=== PATIENT | male | born 1945 | race American Indian/Alaskan Native ===

== ENCOUNTER 2017-11-01 13:38 | Inpatient (IN) | payer MEDICARE, MEDICAID ==
[2017-11-01] MEDS ORDERED: Sodium Chloride 0.9% 1,000 ML IV ONE ×2 (14:11→17:31)
--- NOTE | 2017-11-01 14:13 | C.PDOC ---
History Of Present Illness Patient sent to ED from [place] for evaluation of cachexia and failure to thrive. As per [place] records, patient has h/o HTN, vascular dementia, generalized anxiety, disorder and major depressive disorder, anemia, seizure disorder. Time Seen by Provider: 11/01/17 14:06 Chief Complaint (Nursing): Weakness/Neurological Deficit History Per: EMS, Other ([place] records) History/Exam Limitations: clinical condition Past Medical History Reviewed: Historical Data, Nursing Documentation, Vital Signs Vital Signs: Last Vital Signs Temp 99.2 F 11/04/17 04:00 Pulse 102 H 11/04/17 04:00 Resp 20 11/04/17 04:00 BP 104/64 11/04/17 04:00 Pulse Ox 97 11/04/17 04:00 - Medical History PMH: Dementia, Depression, HTN, Seizures Family History: States: No Known Family Hx - Social History Hx Tobacco Use: Yes ("sometimes") Hx Alcohol Use: Yes ("sometimes") Hx Substance Use: No - Immunization History Hx Tetanus Toxoid Vaccination: No Hx Influenza Vaccination: No Hx Pneumococcal Vaccination: No Review Of Systems Review Of Systems: ROS cannot be obtained secondary to pt's inabilty to answer questions. Physical Exam - Physical Exam Appears: Chronically Ill, Other (cachectic, awake, alert, moaning ) Skin: Normal Color, Warm, Dry, Other (sacral decubitus ulcer) Oral Mucosa: Dry Cardiovascular: Rhythm Regular (tachycardic ) Respiratory: Normal Breath Sounds, No Rales, No Rhonchi, No Wheezing Gastrointestinal/Abdominal: Normal Exam, Bowel Sounds, Soft, No Tenderness Neurological/Psych: Other (awake, alert, moving all 4 extremities spontaneously ) ED Course And Treatment - Laboratory Results Result Diagrams: 11/03/17 07:18 11/03/17 07:18 ECG: Interpreted By Me, Viewed By Me (sinus tachycardia 134 bpm, normal axis, no acute ST/T wave changes) ECG Interpretation: Abnormal O2 Sat by Pulse Oximetry: 96 (ra) Pulse Ox Interpretation: Normal - Other Rad CXR X-Ray: Viewed By Me, Read By Radiologist Interpretation: Accession No. : [id number]. Patient Name / ID : JYOTI Jones / [id number]. Exam Date : 11/01/2017 14:25:17 ( Approved ). Study Comment : Sex / Age : M / 72Y. Creator : Tonio Elizondo MD. Dictator : Tonio Elizondo MD. Rubber Stamp Die Inspector : Song Writer : Tonio Elizondo MD. Approver2 : Report Date : 11/01/2017 14:40:31. My Comment : . PROCEDURE: CHEST RADIOGRAPH, 1 VIEW. HISTORY: eval. COMPARISON: None available. FINDINGS: LUNGS: Left apical pleural thickening/ fibrotic change. Patchy right basilar infiltrate. Questionable 1.8 cm nodule in the right lower lung. PLEURA: No pneumothorax or pleural fluid seen. CARDIOVASCULAR: Atherosclerotic aortic calcifications. Cardiomediastinal silhouette is normal. OSSEOUS STRUCTURES: Degenerative changes. VISUALIZED UPPER ABDOMEN: Normal. OTHER FINDINGS: None. IMPRESSION: Patchy right basal infiltrate. Left apical pleural thickening/ fibrotic change. Questionable 1.8 cm nodule in the right lower lung. CT scan can be obtained for further evaluation. Progress Note: Blood work, CXR, EKG, UA ordered and reviewed. Patient given IV NS bolus. IV antibiotics given for pneumonia and UTI. 5:00PM- Multiple chemistry specimens hemolyzed - new specimen drawn by me, arterial draw from left radial artery. CXR - shows right sided infiltrate, IV Vancomycin, Cefepime and Avelox ordered. 5:45pm- HR 128bpm, BP 108/64, RR30, POx 96% on RA - Physician Consult Information Physician Contacted: Shabbir Yancey Outcome Of Conversation: Discussed patient with PMD, agrees with admission for dehydration, failure to thrive, pneumonia, UTI, leukocytosis, tachycardia. Critical Care Time - Critical Care Note Total Time (in mins): 40 Documented critical care: time excludes all time spent performing seperately billable procedures. Disposition - Disposition Disposition: HOSPITALIZED Disposition Time: 17:53 Condition: FAIR - Clinical Impression Clinical Impression: UTI (urinary tract infection), Pneumonia, Dehydration, Failure to thrive, Leukocytosis, Tachycardia
--- NOTE | 2017-11-01 14:43 | RAD ---
PROCEDURE: CHEST RADIOGRAPH, 1 VIEW HISTORY: eval COMPARISON: None available. FINDINGS: LUNGS: Left apical pleural thickening/ fibrotic change. Patchy right basilar infiltrate. Questionable 1.8 cm nodule in the right lower lung. PLEURA: No pneumothorax or pleural fluid seen. CARDIOVASCULAR: Atherosclerotic aortic calcifications. Cardiomediastinal silhouette is normal. OSSEOUS STRUCTURES: Degenerative changes. VISUALIZED UPPER ABDOMEN: Normal. OTHER FINDINGS: None. IMPRESSION: Patchy right basal infiltrate. Left apical pleural thickening/ fibrotic change. Questionable 1.8 cm nodule in the right lower lung. CT scan can be obtained for further evaluation.
[2017-11-01 15:30] LABS: VENOUS BLOOD GAS BASE EXCESS 8.8 mmol/L (0.0-2.0); VENOUS BLOOD GAS PCO2 35 mmHg (40-60); VENOUS BLOOD GAS PO2 49 mm/Hg (30-55); VENOUS BLOOD PH 7.56 (7.32-7.43)
[2017-11-01 15:52] LABS: BASO % 0.3 % (0.0-2.0); HEMOGLOBIN 10.9 g/dL (12.0-18.0); LYMPH # 1.5 K/uL (1.0-4.3); LYMPH % 8.3 % (20.0-40.0); MEAN CORPUSCULAR HEMOGLOBIN 26.8 pg (27.0-31.0); MEAN CORPUSCULAR HGB CONC 32.2 g/dL (33.0-37.0); MEAN PLATELET VOLUME 7.9 fL (7.2-11.7); MONO # 1.2 K/uL (0.0-0.8); MONO % 6.5 % (0.0-10.0); NEUT # 15.4 K/uL (1.8-7.0); NEUT % 84.9 % (50.0-75.0); NRBC % 0.1 % (0.0-2.0); RBC 4.08 Mil/uL (4.40-5.90); RED CELL DISTRIBUTION WIDTH 14.2 % (11.5-14.5)
[2017-11-01 15:57] LABS: MEAN CELL VOLUME 83.2 fL (80.0-94.0); PLATELET COUNT 444 K/uL (130-400); WHITE BLOOD COUNT 18.2 K/uL (4.8-10.8)
[2017-11-01 16:01] LABS: INR 1.5; PROTHROMBIN TIME 17.1 SECONDS (9.7-12.2)
[2017-11-01 16:19] LABS: LYMPHOCYTE 10 % (20-40); MONOCYTE 6 % (0-10); NEUTROPHIL 84 % (50-75); PLATELET ESTIMATE NORMAL (NORMAL); TOTAL CELLS COUNTED 100
[2017-11-01 16:20] LABS: HYPOCHROMIC SLIGHT; LARGE PLATELETS PRESENT; TARGET CELLS SLIGHT
[2017-11-01 16:52] LABS: ALB/GLOB RATIO 0.6 (1.0-2.1); ALBUMIN 3.5 g/dL (3.5-5.0); ALT/SGPT < 6 U/L (21-72); AST/SGOT 85 U/L (17-59); BLOOD UREA NITROGEN 27 mg/dL (9-20); CALCIUM 8.9 mg/dl (8.6-10.4); GFR AFRICAN-AMERICAN > 60; GFR NON-AFRICAN AMERICAN > 60; LIPASE 38 U/L (23-300)
[2017-11-01 16:54] LABS: URINE BILIRUBIN NEGATIVE (NEGATIVE); URINE BLOOD 3+ (NEGATIVE); URINE CLARITY Hazy (Clear); URINE COLOR Yellow (YELLOW); URINE GLUCOSE (UA) NORMAL (Normal); URINE LEUKOCYTE ESTERASE 2+ Leu/uL (Negative); URINE PROTEIN NEGATIVE (NEGATIVE)
[2017-11-01 16:54] LABS: CK-MB 0.67 ng/mL (0.0-3.38)
[2017-11-01 17:39] LABS: ALB/GLOB RATIO 0.6 (1.0-2.1); ALBUMIN 2.9 g/dL (3.5-5.0); ALT/SGPT 14 U/L (21-72); AST/SGOT 27 U/L (17-59); BLOOD UREA NITROGEN 24 mg/dL (9-20); CALCIUM 8.4 mg/dl (8.6-10.4); GFR AFRICAN-AMERICAN > 60; GFR NON-AFRICAN AMERICAN > 60
[2017-11-01] MEDS ORDERED: Cefepime 1 GM in Sodium Chloride 0.9% 50 ML IVPB STA (17:46)
[2017-11-01] MEDS ORDERED: Vancomycin 1 GM 1 GM/250 ML BAG IV STA (17:46)
[2017-11-01] MEDS ORDERED: Moxifloxacin IV 400mg/250ml NS 400 MG/250 ML BAG IV STA (17:46)
[2017-11-01] MEDS ORDERED: Piperacillin/Tazobact 3.375 gm 100 ML IV STA (17:52)
[2017-11-01] MEDS ORDERED: Piperacillin/Tazobact 3.375 gm 100 ML IVPB ONE (19:09)
[2017-11-01] MEDS: Vancomycin 1 gm/NS 200 ml 1 GM/200 ML BAG IVPB SCH (20:56)
[2017-11-01] MEDS: Dextrose 5%/0.9% NS 1,000 ML IV SCH (21:00)
[2017-11-01] MEDS ORDERED: Phytonadione 10 mg/ml Inj (Adult) SC ONE (22:00)
--- NOTE | 2017-11-01 23:01 | CP.PCM.HP ---
History of Present Illness - History of Present Illness History of Present Illness: CC: weakness HPI: This is an elderly 72 year old male, resident of [facility] with MH of HTN, Alzeimers with psychosis, he is not eating for last few days, not eating well, multiple decubiti in gluteal area, pt has been not eating well since few weeks, pt is complaint to medications. Present on Admission - Present on Admission Any Indicators Present on Admission: Yes Decubitus Ulcer Present: Yes (pt has 2 stage 1 decubiti on left hip and 1 stage 3 decubiti inright hip wi) Decubitus Ulcer Location: sacral Decubitus Ulcer Stage: III Review of Systems - Review of Systems Systems not reviewed;Unavailable: Acuity of Condition - Constitutional Constitutional: Lethargy, Weakness - EENT Eyes: absent: As Per HPI, Blind Spots, Blurred Vision, Change in Vision, Decreased Night Vision, Diplopia, Discharge, Dry Eye, Exophthalmos, Floaters, Irritation, Itchy Eyes, Loss of Peripheral Vision, Pain, Photophobia, Requires Corrective Lenses, Sees Flashes, Spots in Vision, Tunnel Vision, Other Visual Disturbances, Loss of Vision, Other Nose/Mouth/Throat: absent: As Per HPI, Epistaxis, Nasal Congestion, Nasal Discharge, Nasal Obstruction, Nasal Trauma, Nose Pain, Post Nasal Drip, Sinus Pain, Sinus Pressure, Bleeding Gums, Change in Voice, Dental Pain, Dry Mouth, Dysphagia, Halitosis, Hoarsness, Lip Swelling, Mouth Lesions, Mouth Pain, Odynophagia, Sore Throat, Throat Swelling, Tongue Swelling, Facial Pain, Neck Pain, Neck Mass, Other - Cardiovascular Cardiovascular: absent: As Per HPI, Acrocyanosis, Chest Pain, Chest Pain at Rest , Chest Pain with Activity, Claudication, Diaphoresis, Dyspnea, Dyspnea on Exertion, Edema, Irregular Heart Rhythm, Pain Radiating to Arm/Neck/Jaw, Leg Edema, Leg Ulcers, Lightheadedness, Orthopnea, Palpitations, Paroxysmal Nocturnal Dyspnea, Pedal Edema, Radiating Pain, Rapid Heart Rate, Slow Heart Rate, Syncope, Other - Respiratory Respiratory: Chest Congestion - Gastrointestinal Gastrointestinal: Nausea - Genitourinary Genitourinary: absent: As Per HPI, Change in Urinary Stream, Difficulty Urinating, Dysuria, Flank Pain, Hematuria, Pyuria, Nocturia, Urinary Incontinence, Urinary Frequency, Urinary Hesitance, Urinary Urgency, Voiding Freq/Small Amts, Freq UTI, Hx Renal/Bladder Calculi, Hx /Renal Surgery, Bladder Distension, Other - Musculoskeletal Musculoskeletal: Abnormal Gait, Muscle Weakness, Numbness, Tingling - Integumentary Integumentary: Dry Skin, Skin Ulcer - Neurological Neurological: Memory Loss, Weakness - Psychiatric Psychiatric: Abnormal Sleep Pattern, Anhedonia - Endocrine Endocrine: absent: As Per HPI, Change in Body Appearance, Change in Libido, Cold Intolorance, Deepening of Voice, Excessive Sweating, Fatigue, Flushing, Heat Intolorance, Increase in Ring/Shoe/Hat Size, Palpitations, Polydipsia, Polyphagia, Polyuria, Other Past Patient History - Past Medical History & Family History Past Medical History?: Yes - Past Social History Smoking Status: Former Smoker - CARDIAC Hx Hypertension: Yes - PULMONARY Hx Respiratory Disorders: No - NEUROLOGICAL Hx Dementia: Yes Hx Seizures: Yes - HEENT Hx HEENT Problems: No - RENAL Hx Chronic Kidney Disease: No - ENDOCRINE/METABOLIC Hx Endocrine Disorders: No - HEMATOLOGICAL/ONCOLOGICAL Hx Blood Disorders: No - INTEGUMENTARY Hx Dermatological Problems: No - MUSCULOSKELETAL/RHEUMATOLOGICAL Hx Falls: Yes Hx Unsteady Gait: Yes - GASTROINTESTINAL Hx Gastrointestinal Disorders: No - GENITOURINARY/GYNECOLOGICAL Hx Genitourinary Disorders: No - PSYCHIATRIC Hx Depression: Yes Hx Substance Use: No - SURGICAL HISTORY Hx Surgeries: Yes Hx Orthopedic Surgery: Yes Other/Comment: Hx of hip sx with pin insertion in 1989, family member knows nothing more - ANESTHESIA Hx Anesthesia: Yes Hx Anesthesia Reactions: No Meds Allergies/Adverse Reactions: Allergies Allergy/AdvReac Type Severity Reaction Status Date / Time No Known Allergies Allergy Verified 09/13/13 11:11 Physical Exam - Constitutional Appears: No Acute Distress, Cachectic - Eye Exam Eye Exam: EOMI, Normal appearance, PERRL Pupil Exam: NORMAL ACCOMODATION, PERRL - ENT Exam ENT Exam: Mucous Membranes Dry - Neck Exam Neck exam: Positive for: Normal Inspection - Respiratory Exam Respiratory Exam: Rales - Cardiovascular Exam Cardiovascular Exam: Tachycardia, +S1, +S2 - GI/Abdominal Exam GI & Abdominal Exam: Normal Bowel Sounds, Soft. absent: Tenderness - Neurological Exam Neurological exam: Abnormal Gait - Psychiatric Exam Psychiatric exam: Anxious - Skin Skin Exam: Dry, Erythema, Intact, Normal Color, Rash, Warm Additional comments: infected sacral decubitis, right hip and sacral area Results - Vital Signs Recent Vital Signs: Last Vital Signs Temp 98.4 F 11/01/17 17:57 Pulse 127 H 11/01/17 17:57 Resp 16 11/01/17 17:57 BP 108/64 11/01/17 17:57 Pulse Ox 98 11/01/17 17:57 - Labs Result Diagrams: 11/01/17 15:42 11/01/17 17:17 Labs: Laboratory Results - last 24 hr 11/01/17 11/01/17 11/01/17 15:18 15:42 15:42 WBC 18.2 H D RBC 4.08 L Hgb 10.9 L Hct 34.0 L MCV 83.2 D MCH 26.8 L MCHC 32.2 L RDW 14.2 Plt Count 444 H D MPV 7.9 Neut % (Auto) 84.9 H Lymph % (Auto) 8.3 L [place] % (Auto) 6.5 Eos % (Auto) 0.0 Baso % (Auto) 0.3 Neut # (Auto) 15.4 H Lymph # (Auto) 1.5 [place] # (Auto) 1.2 H Eos # (Auto) 0.0 Baso # (Auto) 0.0 Neutrophils % (Manual) 84 H Lymphocytes % (Manual) 10 L Monocytes % (Manual) 6 Platelet Estimate Normal Large Platelets Present Hypochromasia (manual) Slight Target Cells Slight PT 17.1 H INR 1.5 APTT 26 pO2 49 VBG pH 7.56 H VBG pCO2 35 L VBG HCO3 31.6 VBG Total CO2 32.4 H VBG O2 Sat (Calc) 92.6 H VBG Base Excess 8.8 H VBG Potassium 7.0 H* Sodium 148.0 Chloride 117.0 H Glucose 128 H Lactate 1.8 Crit Value Called To Zee javed rn Crit Value Called By Iris Crit Value Read Back Y Blood Gas Notified Time 1530 Potassium Carbon Dioxide Anion Gap BUN Creatinine Est GFR ( Amer) Est GFR (Non-Af Amer) Random Glucose Calcium Total Bilirubin AST ALT Alkaline Phosphatase CK-MB (Mass) Troponin I Total Protein Albumin Globulin Albumin/Globulin Ratio Lipase Venous Blood Potassium 7.0 H* Urine Color Urine Clarity Urine pH Ur Specific [place] Urine Protein Urine Glucose (UA) Urine Ketones Urine Blood Urine Nitrate Urine Bilirubin Urine Urobilinogen Ur Leukocyte Esterase Urine WBC (Auto) Urine RBC (Auto) 11/01/17 11/01/17 11/01/17 15:42 16:22 16:55 WBC RBC Hgb Hct MCV MCH MCHC RDW Plt Count MPV Neut % (Auto) Lymph % (Auto) [place] % (Auto) Eos % (Auto) Baso % (Auto) Neut # (Auto) Lymph # (Auto) [place] # (Auto) Eos # (Auto) Baso # (Auto) Neutrophils % (Manual) Lymphocytes % (Manual) Monocytes % (Manual) Platelet Estimate Large Platelets Hypochromasia (manual) Target Cells PT INR APTT pO2 VBG pH VBG pCO2 VBG HCO3 VBG Total CO2 VBG O2 Sat (Calc) VBG Base Excess VBG Potassium Sodium 154 H Chloride 112 H Glucose Lactate Crit Value Called To Crit Value Called By Crit Value Read Back Blood Gas Notified Time Potassium 7.0 H* Carbon Dioxide 28 Anion Gap 20 BUN 27 H Creatinine 1.0 Est GFR ( Amer) > 60 Est GFR (Non-Af Amer) > 60 Random Glucose 122 H Calcium 8.9 Total Bilirubin 1.9 H AST 85 H ALT < 6 L D Alkaline Phosphatase 141 H CK-MB (Mass) 0.67 Troponin I 0.0130 Total Protein 9.5 H Albumin 3.5 Globulin 6.0 H Albumin/Globulin Ratio 0.6 L Lipase 38 Venous Blood Potassium Urine Color Yellow Urine Clarity Hazy Urine pH 5.0 Ur Specific [place] 1.015 Urine Protein Negative Urine Glucose (UA) Normal Urine Ketones Negative Urine Blood 3+ H Urine Nitrate Negative Urine Bilirubin Negative Urine Urobilinogen 4.0 Ur Leukocyte Esterase 2+ H Urine WBC (Auto) 20 H Urine RBC (Auto) 145 H 11/01/17 17:17 WBC RBC Hgb Hct MCV MCH MCHC RDW Plt Count MPV Neut % (Auto) Lymph % (Auto) [place] % (Auto) Eos % (Auto) Baso % (Auto) Neut # (Auto) Lymph # (Auto) [place] # (Auto) Eos # (Auto) Baso # (Auto) Neutrophils % (Manual) Lymphocytes % (Manual) Monocytes % (Manual) Platelet Estimate Large Platelets Hypochromasia (manual) Target Cells PT INR APTT pO2 VBG pH VBG pCO2 VBG HCO3 VBG Total CO2 VBG O2 Sat (Calc) VBG Base Excess VBG Potassium Sodium 154 H Chloride 115 H Glucose Lactate Crit Value Called To Crit Value Called By Crit Value Read Back Blood Gas Notified Time Potassium 4.4 Carbon Dioxide 28 Anion Gap 16 BUN 24 H Creatinine 0.9 Est GFR ( Amer) > 60 Est GFR (Non-Af Amer) > 60 Random Glucose 126 H Calcium 8.4 L Total Bilirubin 0.9 AST 27 ALT 14 L D Alkaline Phosphatase 86 CK-MB (Mass) Troponin I Total Protein 7.5 Albumin 2.9 L Globulin 4.6 H Albumin/Globulin Ratio 0.6 L Lipase Venous Blood Potassium Urine Color Urine Clarity Urine pH Ur Specific [place] Urine Protein Urine Glucose (UA) Urine Ketones Urine Blood Urine Nitrate Urine Bilirubin Urine Urobilinogen Ur Leukocyte Esterase Urine WBC (Auto) Urine RBC (Auto) Assessment & Plan (1) Sacral decubitus ulcer, stage III Assessment and Plan: admit, IV fluids, pancultures Status: Acute (2) HTN (hypertension) Status: Acute (3) Alzheimer disease Status: Acute (4) Weakness Status: Acute
[2017-11-02] MEDS: Dextrose 5%/0.9% NS 1,000 ML IV SCH ×2 (02:42→13:09)
[2017-11-02] MEDS: Piperacillin/Tazobact 3.375 GM in Sodium Chloride 100 ML IVPB SCH ×3 (02:43→18:34)
--- NOTE | 2017-11-02 07:41 | CP.PCM.PN ---
Subjective - Date & Time of Evaluation Date of Evaluation: 11/02/17 Time of Evaluation: 19:00 - Subjective Subjective: Pt seen and examined at bedside, pt is more alert, afebrile, less tacycardic, less tacypneac, cultures are pending Objective - Vital Signs/Intake and Output Vital Signs (last 24 hours): Temp Pulse Resp BP Pulse Ox 97.6 F 110 H 20 131/69 96 11/01/17 23:50 11/02/17 04:00 11/01/17 23:50 11/01/17 23:50 11/01/17 23:50 Intake and Output: 11/02/17 11/02/17 06:59 18:59 Intake Total 300 Output Total 950 Balance -650 - Medications Medications: Current Medications Ascorbic Acid (Vitamin C 500 Mg Tab) 500 mg PO DAILY [facility] Divalproex Sodium (Depakote Sprinkles) 125 mg PO BID [facility] Enoxaparin Sodium (Lovenox) 30 mg SC DAILY [facility] Folic Acid (Folic Acid) 1 mg PO DAILY [facility] Dextrose/Sodium Chloride (Dextrose 5%/0.9% Ns 1000 Ml) 1,000 mls @ 150 mls/hr IV .[id number] [facility] Last Admin: 11/02/17 02:42 Dose: Not Given Vancomycin/Sodium Chloride (Vancomycin 1 Gm/Ns 200 Ml) 1 gm in 200 mls @ 133.333 mls/hr IVPB Q24H [facility] PRN Reason: Protocol Stop: 11/06/17 20:31 Last Admin: 11/01/17 20:56 Dose: 133.333 mls/hr Piperacillin Sod/Tazobactam (Sod 3.375 gm/ Sodium Chloride) 100 mls @ 200 mls/ hr IVPB Q8H [facility] PRN Reason: Protocol Last Admin: 11/02/17 02:43 Dose: 200 mls/hr Levetiracetam (Keppra) 500 mg PO BID [facility] Memantine (Namenda) 10 mg PO BID [facility] Risperidone (Risperdal Tab) 0.5 mg PO TID [facility] Vitamin B Complex/Folic Acid (Berroca) 1 tab PO DAILY [facility] Vitamin E (Vitamin E 400 Units Cap) 400 intlu PO DAILY [facility] Zinc Sulfate (Zinc Sulfate 220 Mg Cap) 220 mg PO DAILY [facility] - Labs Labs: 11/01/17 15:42 11/01/17 17:17 PT 17.1 SECONDS (9.7-12.2) H 11/01/17 15:42 INR 1.5 11/01/17 15:42 APTT 26 SECONDS (21-34) 11/01/17 15:42 - Constitutional Appears: No Acute Distress - Head Exam Head Exam: ATRAUMATIC, NORMAL INSPECTION, NORMOCEPHALIC - Eye Exam Eye Exam: EOMI, Normal appearance, PERRL Pupil Exam: NORMAL ACCOMODATION, PERRL - Respiratory Exam Respiratory Exam: Clear to Ausculation Bilateral, NORMAL BREATHING PATTERN - Cardiovascular Exam Cardiovascular Exam: Tachycardia, +S1, +S2. absent: Murmur - GI/Abdominal Exam GI & Abdominal Exam: Soft, Normal Bowel Sounds. absent: Tenderness Assessment and Plan (1) Sacral decubitus ulcer, stage III Assessment & Plan: A/P 72 yr old male admitted from [place] for cachexia and failure to thrive./ hypernatremia NA - 154 will continue with IVF at 2150 ml /hrx 1 days and repeat labs in am, and start puree diet and swallow eval Patient will be stable for peg tube by MONDAY D/w Dr. Caputo plan for peg tube Monday if patient stable will continue with current antibiotics until cultures are back Wound care Nurse Delvin consulted for wound care recommendations Status: Acute (2) HTN (hypertension) Status: Acute (3) Alzheimer disease Status: Acute (4) Weakness Status: Acute
[2017-11-02] MEDS ORDERED: Phytonadione 10 mg/ml Inj (Adult) SC STA (10:57)
--- NOTE | 2017-11-02 11:55 | CARD ---
APPROVED REPORT EKG Measurement Heart [id number] ID [id number] <Conclusion> Sinus tachycardia Otherwise normal ECG
--- NOTE | 2017-11-02 12:01 | CP.PCM.CON ---
History of Present Illness - History of Present Illness History of Present Illness: Palliative consult requested by Doctor Yancey for goals of care discussion Patient is a 72yo male, admitted from [place] with cachexia and failure to thrive. per documentation patient has been compliant with meds, but no with food; has been refusing food for few weeks now. PEG insertion planned for today. On admission WBC 18.2, VBG K was 7.0, dropped down to 4.4 today. Na 154 elevated most likely due to dehydration. UA suggesting a lot of bacteria in urine. PMH: HTN, vascular dementia, anxiety, psychosis, major depressive disorders, seizures Soc. hx: [place] resident, single Fam. Hx: none documented, patient unable to provide information Review of Systems - Review of Systems All systems: reviewed and no additional remarkable complaints except Review of Systems: ROS obtained from nursing due to patient's inability to answer questions secondary to medical condition. Per nursing one of patient's bed sores has a foul smell. Past Patient History - Past Medical History & Family History Past Medical History?: Yes - Past Social History Smoking Status: Former Smoker - CARDIAC Hx Hypertension: Yes - PULMONARY Hx Respiratory Disorders: No - NEUROLOGICAL Hx Dementia: Yes Hx Seizures: Yes - HEENT Hx HEENT Problems: No - RENAL Hx Chronic Kidney Disease: No - ENDOCRINE/METABOLIC Hx Endocrine Disorders: No - HEMATOLOGICAL/ONCOLOGICAL Hx Blood Disorders: No - INTEGUMENTARY Hx Dermatological Problems: No - MUSCULOSKELETAL/RHEUMATOLOGICAL Hx Falls: Yes Hx Unsteady Gait: Yes - GASTROINTESTINAL Hx Gastrointestinal Disorders: No - GENITOURINARY/GYNECOLOGICAL Hx Genitourinary Disorders: No - PSYCHIATRIC Hx Depression: Yes Hx Substance Use: No - SURGICAL HISTORY Hx Surgeries: Yes Hx Orthopedic Surgery: Yes Other/Comment: Hx of hip sx with pin insertion in 1989, family member knows nothing more - ANESTHESIA Hx Anesthesia: Yes Hx Anesthesia Reactions: No Meds Allergies/Adverse Reactions: Allergies Allergy/AdvReac Type Severity Reaction Status Date / Time No Known Allergies Allergy Verified 09/13/13 11:11 - Medications Medications: Current Medications Ascorbic Acid (Vitamin C 500 Mg Tab) 500 mg PO DAILY [facility] Divalproex Sodium (Depakote Sprinkles) 125 mg PO BID [facility] Enoxaparin Sodium (Lovenox) 30 mg SC DAILY [facility] Folic Acid (Folic Acid) 1 mg PO DAILY [facility] Dextrose/Sodium Chloride (Dextrose 5%/0.9% Ns 1000 Ml) 1,000 mls @ 150 mls/hr IV .Q6H40M [facility] Last Admin: 11/02/17 02:42 Dose: Not Given Vancomycin/Sodium Chloride (Vancomycin 1 Gm/Ns 200 Ml) 1 gm in 200 mls @ 133.333 mls/hr IVPB Q24H [facility] PRN Reason: Protocol Stop: 11/06/17 20:31 Last Admin: 11/01/17 20:56 Dose: 133.333 mls/hr Piperacillin Sod/Tazobactam (Sod 3.375 gm/ Sodium Chloride) 100 mls @ 200 mls/ hr IVPB Q8H [facility] PRN Reason: Protocol Last Admin: 11/02/17 02:43 Dose: 200 mls/hr Metronidazole (Flagyl) 500 mg in 100 mls @ 100 mls/hr IVPB Q8 [facility] PRN Reason: Protocol Levetiracetam (Keppra) 500 mg PO BID [facility] Memantine (Namenda) 10 mg PO BID [facility] Pantoprazole Sodium (Protonix Inj) 40 mg IVP DAILY [facility] Risperidone (Risperdal Tab) 0.5 mg PO TID [facility] Vitamin B Complex/Folic Acid (Berroca) 1 tab PO DAILY [facility] Vitamin E (Vitamin E 400 Units Cap) 400 intlu PO DAILY [facility] Zinc Sulfate (Zinc Sulfate 220 Mg Cap) 220 mg PO DAILY [facility] Physical Exam - Constitutional Appears: Chronically Ill - Head Exam Head Exam: ATRAUMATIC, NORMAL INSPECTION, NORMOCEPHALIC - Eye Exam Eye Exam: EOMI, Normal appearance, PERRL Pupil Exam: NORMAL ACCOMODATION, PERRL - ENT Exam ENT Exam: Mucous Membranes Dry - Neck Exam Neck exam: Positive for: Normal Inspection - Respiratory Exam Respiratory Exam: Decreased Breath Sounds, NORMAL BREATHING PATTERN - Cardiovascular Exam Cardiovascular Exam: Tachycardia - GI/Abdominal Exam GI & Abdominal Exam: Normal Bowel Sounds - Rectal Exam Rectal Exam: Deferred - Exam Exam: NORMAL INSPECTION - Extremities Exam Extremities exam: Positive for: normal inspection - Back Exam Additional comments: multiple sacral and hip pressure sores - Neurological Exam Neurological exam: Alert, Altered - Psychiatric Exam Psychiatric exam: Agitated - Skin Skin Exam: Pallor Results - Vital Signs Recent Vital Signs: Last Vital Signs Temp 97.4 F L 11/02/17 07:40 Pulse 119 H 11/02/17 07:40 Resp 18 11/02/17 07:40 BP 112/60 11/02/17 07:40 Pulse Ox 92 L 11/02/17 07:40 - Labs Result Diagrams: 11/01/17 15:42 11/01/17 17:17 Labs: Laboratory Results - last 24 hr 11/01/17 11/01/17 11/01/17 15:18 15:42 15:42 WBC 18.2 H D RBC 4.08 L Hgb 10.9 L Hct 34.0 L MCV 83.2 D MCH 26.8 L MCHC 32.2 L RDW 14.2 Plt Count 444 H D MPV 7.9 Neut % (Auto) 84.9 H Lymph % (Auto) 8.3 L [place] % (Auto) 6.5 Eos % (Auto) 0.0 Baso % (Auto) 0.3 Neut # (Auto) 15.4 H Lymph # (Auto) 1.5 [place] # (Auto) 1.2 H Eos # (Auto) 0.0 Baso # (Auto) 0.0 Neutrophils % (Manual) 84 H Lymphocytes % (Manual) 10 L Monocytes % (Manual) 6 Platelet Estimate Normal Large Platelets Present Hypochromasia (manual) Slight Target Cells Slight PT 17.1 H INR 1.5 APTT 26 pO2 49 VBG pH 7.56 H VBG pCO2 35 L VBG HCO3 31.6 VBG Total CO2 32.4 H VBG O2 Sat (Calc) 92.6 H VBG Base Excess 8.8 H VBG Potassium 7.0 H* Sodium 148.0 Chloride 117.0 H Glucose 128 H Lactate 1.8 Crit Value Called To Zee javed rn Crit Value Called By Iris Crit Value Read Back Y Blood Gas Notified Time 1530 Potassium Carbon Dioxide Anion Gap BUN Creatinine Est GFR ( Amer) Est GFR (Non-Af Amer) Random Glucose Calcium Total Bilirubin AST ALT Alkaline Phosphatase CK-MB (Mass) Troponin I Total Protein Albumin Globulin Albumin/Globulin Ratio Lipase Venous Blood Potassium 7.0 H* Urine Color Urine Clarity Urine pH Ur Specific [place] Urine Protein Urine Glucose (UA) Urine Ketones Urine Blood Urine Nitrate Urine Bilirubin Urine Urobilinogen Ur Leukocyte Esterase Urine WBC (Auto) Urine RBC (Auto) 11/01/17 11/01/17 11/01/17 15:42 16:22 16:55 WBC RBC Hgb Hct MCV MCH MCHC RDW Plt Count MPV Neut % (Auto) Lymph % (Auto) [place] % (Auto) Eos % (Auto) Baso % (Auto) Neut # (Auto) Lymph # (Auto) [place] # (Auto) Eos # (Auto) Baso # (Auto) Neutrophils % (Manual) Lymphocytes % (Manual) Monocytes % (Manual) Platelet Estimate Large Platelets Hypochromasia (manual) Target Cells PT INR APTT pO2 VBG pH VBG pCO2 VBG HCO3 VBG Total CO2 VBG O2 Sat (Calc) VBG Base Excess VBG Potassium Sodium 154 H Chloride 112 H Glucose Lactate Crit Value Called To Crit Value Called By Crit Value Read Back Blood Gas Notified Time Potassium 7.0 H* Carbon Dioxide 28 Anion Gap 20 BUN 27 H Creatinine 1.0 Est GFR ( Amer) > 60 Est GFR (Non-Af Amer) > 60 Random Glucose 122 H Calcium 8.9 Total Bilirubin 1.9 H AST 85 H ALT < 6 L D Alkaline Phosphatase 141 H CK-MB (Mass) 0.67 Troponin I 0.0130 Total Protein 9.5 H Albumin 3.5 Globulin 6.0 H Albumin/Globulin Ratio 0.6 L Lipase 38 Venous Blood Potassium Urine Color Yellow Urine Clarity Hazy Urine pH 5.0 Ur Specific [place] 1.015 Urine Protein Negative Urine Glucose (UA) Normal Urine Ketones Negative Urine Blood 3+ H Urine Nitrate Negative Urine Bilirubin Negative Urine Urobilinogen 4.0 Ur Leukocyte Esterase 2+ H Urine WBC (Auto) 20 H Urine RBC (Auto) 145 H 11/01/17 17:17 WBC RBC Hgb Hct MCV MCH MCHC RDW Plt Count MPV Neut % (Auto) Lymph % (Auto) [place] % (Auto) Eos % (Auto) Baso % (Auto) Neut # (Auto) Lymph # (Auto) [place] # (Auto) Eos # (Auto) Baso # (Auto) Neutrophils % (Manual) Lymphocytes % (Manual) Monocytes % (Manual) Platelet Estimate Large Platelets Hypochromasia (manual) Target Cells PT INR APTT pO2 VBG pH VBG pCO2 VBG HCO3 VBG Total CO2 VBG O2 Sat (Calc) VBG Base Excess VBG Potassium Sodium 154 H Chloride 115 H Glucose Lactate Crit Value Called To Crit Value Called By Crit Value Read Back Blood Gas Notified Time Potassium 4.4 Carbon Dioxide 28 Anion Gap 16 BUN 24 H Creatinine 0.9 Est GFR ( Amer) > 60 Est GFR (Non-Af Amer) > 60 Random Glucose 126 H Calcium 8.4 L Total Bilirubin 0.9 AST 27 ALT 14 L D Alkaline Phosphatase 86 CK-MB (Mass) Troponin I Total Protein 7.5 Albumin 2.9 L Globulin 4.6 H Albumin/Globulin Ratio 0.6 L Lipase Venous Blood Potassium Urine Color Urine Clarity Urine pH Ur Specific [place] Urine Protein Urine Glucose (UA) Urine Ketones Urine Blood Urine Nitrate Urine Bilirubin Urine Urobilinogen Ur Leukocyte Esterase Urine WBC (Auto) Urine RBC (Auto) Assessment & Plan - Assessment and Plan (Free Text) Assessment: Palliative consult Full Code, POLST on chart I reviewed medica; records, all diagnostic studies, examined paient in the bed. Patient is alert, altered, agitated, yelling " water, water". Patient kept NPO for PEG insertion. Per nursing no POA was reached for PEG consent. Physical exam reveals cachectic male, with multiple sacral and hip pressure sores. Limited mobility in bed, nonambulatory. Diminished breath sounds, no cough. HR 119, ST. Abdomen flat, active bowel sounds, incontinent. Foul smelling left hip pressure sore, drainage serous. Murray cath at bed side drained 650 cc of tea color urine. IVF of D5NS at 150 cc/ hr. BP 112/60, HR 19. Afebrile Hb 7.9, Na 154 elevated most likely due to dehydration. WBC 18.2. Vanco IV on board. UA showed many bacteria in the urine. I called patient's POA Nora Mtz at [phone] . Call was not answered and mail box fas full, did not accept new voice mail. Impression * Chronically ill male, unable to advocate for himself due to medical condition * cachecia * Anxiety * Limited mobility * Dehydration * Malnutrition Suggestion * Administrative order for PEG as it is priority for patient's well being at this time since POA is not reachable * Psych consult for anxiety evaluation and treatment * Air mattress and turning and positioning * Artificial Hydration and Nutrition
[2017-11-02] MEDS: Enoxaparin 30 mg Syringe SC SCH (12:55)
[2017-11-02] MEDS: Divalproex 125 mg Sprinkle Capsule PO SCH ×2 (13:08→17:58)
[2017-11-02] MEDS: metroNIDAZOLE IV 500 mg/100 ml 500 MG/100 ML BAG IVPB SCH ×2 (14:09→22:37)
--- NOTE | 2017-11-02 15:52 | CP.PCM.PN ---
Subjective - Date & Time of Evaluation Date of Evaluation: 11/02/17 Time of Evaluation: 11:00 - Subjective Subjective: Patient seen today , awake, alert, NAD Objective - Vital Signs/Intake and Output Vital Signs (last 24 hours): Temp Pulse Resp BP Pulse Ox 97.4 F L 122 H 18 112/60 92 L 11/02/17 07:40 11/02/17 14:40 11/02/17 07:40 11/02/17 07:40 11/02/17 07:40 Intake and Output: 11/02/17 11/02/17 06:59 18:59 Intake Total 300 1100 Output Total 950 500 Balance -650 600 - Medications Medications: Current Medications Ascorbic Acid (Vitamin C 500 Mg Tab) 500 mg PO DAILY [facility] Last Admin: 11/02/17 12:56 Dose: 500 mg Divalproex Sodium (Depakote Sprinkles) 125 mg PO BID [facility] Last Admin: 11/02/17 13:08 Dose: 125 mg Enoxaparin Sodium (Lovenox) 30 mg SC DAILY [facility] Last Admin: 11/02/17 12:55 Dose: 30 mg Folic Acid (Folic Acid) 1 mg PO DAILY [facility] Last Admin: 11/02/17 12:56 Dose: 1 mg Dextrose/Sodium Chloride (Dextrose 5%/0.9% Ns 1000 Ml) 1,000 mls @ 150 mls/hr IV .Q6H40M [facility] Last Admin: 11/02/17 13:09 Dose: 150 mls/hr Vancomycin/Sodium Chloride (Vancomycin 1 Gm/Ns 200 Ml) 1 gm in 200 mls @ 133.333 mls/hr IVPB Q24H [facility] PRN Reason: Protocol Stop: 11/06/17 20:31 Last Admin: 11/01/17 20:56 Dose: 133.333 mls/hr Piperacillin Sod/Tazobactam (Sod 3.375 gm/ Sodium Chloride) 100 mls @ 200 mls/ hr IVPB Q8H [facility] PRN Reason: Protocol Last Admin: 11/02/17 11:36 Dose: 200 mls/hr Metronidazole (Flagyl) 500 mg in 100 mls @ 100 mls/hr IVPB Q8 [facility] PRN Reason: Protocol Last Admin: 11/02/17 14:09 Dose: 100 mls/hr Levetiracetam (Keppra) 500 mg PO BID [facility] Last Admin: 11/02/17 12:57 Dose: 500 mg Memantine (Namenda) 10 mg PO BID [facility] Last Admin: 11/02/17 12:57 Dose: 10 mg Pantoprazole Sodium (Protonix Inj) 40 mg IVP DAILY [facility] Last Admin: 11/02/17 12:55 Dose: 40 mg Risperidone (Risperdal Tab) 0.5 mg PO TID [facility] Last Admin: 11/02/17 14:25 Dose: 0.5 mg Vitamin B Complex/Folic Acid (Berroca) 1 tab PO DAILY [facility] Last Admin: 11/02/17 13:07 Dose: 1 tab Vitamin E (Vitamin E 400 Units Cap) 400 intlu PO DAILY [facility] Last Admin: 11/02/17 13:09 Dose: 400 intlu Zinc Sulfate (Zinc Sulfate 220 Mg Cap) 220 mg PO DAILY [facility] Last Admin: 11/02/17 12:57 Dose: 220 mg - Labs Labs: 11/01/17 15:42 11/01/17 17:17 PT 17.1 SECONDS (9.7-12.2) H 11/01/17 15:42 INR 1.5 11/01/17 15:42 APTT 26 SECONDS (21-34) 11/01/17 15:42 Assessment and Plan - Assessment and Plan (Free Text) Assessment: A/P 72 yr old male admitted [place] for cachexia and failure to thrive./ hypernatremia NA - 154 D/W Dr. Yancey, will continue with IVF at 2150 ml /hrx 1 days and repeat labs in am, and start puree diet and swallow eval Patient will be stable for peg tube by MONDAY D/w Dr. Caputo plan for peg tube Monday if patient stable will continue with current antibiotics until cultures are back Wound care Nurse Delvin consulted for wound care recommendations
[2017-11-02] MEDS: Vancomycin 1 gm/NS 200 ml 1 GM/200 ML BAG IVPB SCH (19:45)
--- NOTE | 2017-11-02 22:20 | CON ---
DATE: LOCATION: [facility], bed B. HISTORY OF PRESENT ILLNESS: This is a 72-year-old male, seen and examined for GI consultation as requested by the admitting MD on 11/01/2017 in the presence of the staff in the floor. The entire chart is reviewed including but not limited to most recent lab and radiology study results, current and the previous medication list, current and the previous medical events, allergies to medication list as well as all the available current and previous medical record. It has to be mentioned that the patient is nonverbal and all the information obtained from the [facility], medical staff notes, as well as nursing staff notes. This is a 72-year-old male who was admitted to the hospital through the emergency room [facility] a [facility], cachectic, with underlying diagnosis of failure to thrive due to very poor oral intake as per the record. The patient is demented. No reported active bleeding, significant chills or fever, chest pain, palpitation, tremors or significant shortness of breath recently. PAST MEDICAL HISTORY: Including but not limited to; 1. Dementia. 2. Known history of severe anxiety syndrome with depression. 3. Seizure disorder of unclear etiology. 4. Known history of hypertension. 5. Peptic ulcer disease. SOCIAL HISTORY: The [facility] is a [facility] resident with history of alcohol intake and cigarette smoking. CURRENT MEDICATIONS: Medication list post admission reviewed. ALLERGIES TO MEDICATIONS: UNKNOWN PER RECORD. FAMILY HISTORY: Noncontributory. After being admitted to the hospital, initial workup showed white blood cells of 18.2, hemoglobin 10.9, hematocrit 34 with low indices of thrombocytosis of 444. PT of 17.1 with normal INR, with abnormal ABGs. Sodium 154, potassium 5.5, BUN 24 with normal creatinine, blood glucose 126, calcium 8.4 with albumin 2.9. Initial chest x-ray report is seen indicative of patchy right base infiltrate with right apical pleural thickening, with questionable 1.8 cm nodule in the right lower lung. PHYSICAL EXAMINATION: GENERAL: A 72-year-old male, nonverbal. VITAL SIGNS: Afebrile with pulse of 88, respiratory rate 20 to 22, blood pressure 124/66. HEENT: Showed pale, dry, oral mucous membranes. Nonicteric sclerae. LYMPH NODES: No lymphadenitis or lymphadenopathy. LUNGS: Scattered crepitation. Decreased air entry at bases. HEART: Positive S1 and S2. ABDOMEN: Soft, bowel sounds are present. No mass or organomegaly. No rebound tenderness or guarding, but mild distention. EXTREMITIES: With contraction of upper and lower extremity with mild lower extremity edematous changes. No clubbing or cyanosis. NEUROLOGIC: No reported new neurological deficits, sensory or motor. No other new reported focal deficits. Peripheral pulses are present but decreased bilaterally. IMPRESSION: 1. Failure to thrive. 2. Malnutrition with hypoalbuminemia. 3. The patient is a candidate for PEG insertion. 4. Reported pneumonia by chest x-ray. 5. Multiple past medical history including but not limited to vascular dementia, hypertension, major depression, seizure disorder, peptic ulcer disease. 6. Anemia, most likely secondary to above. 7. Electrolyte imbalance with hypernatremia, hypocalcemia. SUGGESTIONS: 1. Agree with your plan. 2. We will schedule the patient for PEG insertion after receiving a legal consent from the legal guardian, none available at the time of my consultation. 3. Flagyl IV. 4. Proton pump inhibitors IV. 5. Peripheral hyperalimentation. 6. Correct any underlying electrolyte imbalance. 7. Correct any underlying coagulopathy. 8. Further recommendation to follow after PEG insertion. Thank your for letting me participate in your patient's case management. Candice Morrissey MD
[2017-11-03] MEDS: Piperacillin/Tazobact 3.375 GM in Sodium Chloride 100 ML IVPB SCH ×3 (03:21→18:25)
[2017-11-03] MEDS: metroNIDAZOLE IV 500 mg/100 ml 500 MG/100 ML BAG IVPB SCH ×3 (05:32→22:25)
[2017-11-03 07:42] LABS: BASO % 0.3 % (0.0-2.0); EOS % 0.1 % (0.0-4.0); LYMPH # 1.7 K/uL (1.0-4.3); LYMPH % 12.9 % (20.0-40.0); MEAN CELL VOLUME 82.9 fL (80.0-94.0); MEAN CORPUSCULAR HEMOGLOBIN 26.4 pg (27.0-31.0); MEAN CORPUSCULAR HGB CONC 31.9 g/dL (33.0-37.0); MEAN PLATELET VOLUME 7.7 fL (7.2-11.7); MONO # 0.6 K/uL (0.0-0.8); NEUT # 10.6 K/uL (1.8-7.0); NEUT % 81.7 % (50.0-75.0); RBC 2.78 Mil/uL (4.40-5.90)
[2017-11-03 07:47] LABS: HEMOGLOBIN 7.3 g/dL (12.0-18.0)
[2017-11-03 08:05] LABS: BLOOD UREA NITROGEN 12 mg/dL (9-20); GFR AFRICAN-AMERICAN > 60; GFR NON-AFRICAN AMERICAN > 60
[2017-11-03] MEDS: Enoxaparin 30 mg Syringe SC SCH ×2 (10:45→11:25)
[2017-11-03] MEDS: Divalproex 125 mg Sprinkle Capsule PO SCH ×3 (11:24→18:24)
[2017-11-03] MEDS: Dextrose 5%/0.9% NS 1,000 ML IV SCH (11:24)
--- NOTE | 2017-11-03 12:06 | PN ---
DATE: 11/03/2017 LOCATION: 660, bed B. SUBJECTIVE: This is a 72-year-old male seen and examined in rounds today with reported low grade temperature, but without significant clinical changes or reported active bleeding with poor oral intake. The entire chart is reviewed including but not limited to most recent lab and radiology study results, current and the previous medication list, current and the previous medical events. The patient appears to be somewhat more awake and alert. No reported chest pain, significant palpitation or shortness of breath as per the nursing staff report, still on peripheral IV nutritional support in the meantime. Today's lab showed hemoglobin of 7.3, hematocrit 23 for which the patient will require blood transfusion before any aggressive GI procedure. White blood cells 13 and platelets 354. Sodium 157, potassium 3.2, calcium 8, with reported low albumin before. PHYSICAL EXAMINATION: GENERAL: A 72-year-old male with low grade temperature. VITAL SIGNS: Pulse of 100, respiratory rate 20 to 22, blood pressure 112/64. HEENT: Showed pale, dry oral mucoid membrane. Nonicteric sclerae. LUNGS: Few scattered crepitations. Decreased air entry at bases. HEART: Positive S1 and S2. ABDOMEN: Soft. Bowel sounds are present with mild generalized tenderness. No mass or organomegaly. No rebound tenderness or guarding. EXTREMITIES: With mild contractions with lower extremity mild edematous changes. No clubbing or cyanosis. NEUROLOGICAL: No new reported neurological deficits, sensory or motor. However, the patient appears to be with intermittent periods of mild agitation. It has to be mentioned that the patient had been refusing any food, oral intake compatible with underlying diagnosis of failure to thrive; however, he is taking medication orally. IMPRESSION: 1. Failure to thrive. 2. History of dementia with major depression. 3. Septicemia. 4. Known history of severe anxiety syndrome. 5. Seizure disorder by history. 6. Peptic ulcer disease, hypertension by history. 7. Anemia most likely secondary to above, the possibility of gastrointestinal blood loss was raised. 8. Known history of alcoholism. 9. Electrolyte imbalance with hypokalemia, hypocalcemia and hypernatremia. SUGGESTIONS: 1. Agree with your plan. 2. Rehydration. 3. Correct any underlying electrolyte imbalance. 4. It has to be mentioned that the case discussed at length with the legal guardian and consent for PEG insertion was obtained for potential PEG insertion on 11/06/2017 when the patient is more stable clinically and after controlling his underlying septicemia, leukocytosis and fever. That discussed with Dr. Yancey. Further recommendation to follow and central hyperalimentation as well as blood transfusion to keep hemoglobin around 10 g percent is required. 5. Potassium through the IV for potassium supplement. 6. Further recommendation to follow. Candice Mrorissey MD
--- NOTE | 2017-11-03 12:11 | CP.PCM.PN ---
Subjective - Date & Time of Evaluation Date of Evaluation: 11/03/17 Time of Evaluation: 12:11 - Subjective Subjective: CONSENT FOR BLOOD TRANSFUSION DISCUSSED AT LENGTH WITH PT'S POA, ISELA DURÁN, AND PRIMARY RN SUHAS Stallings SINCE PT IS CONFUSED. RISKS AND BENEFITS DISCUSSED . ISELA IS IN AGREEMENT WITH THE TRANSFUSION. SHE VERBALIZES UNDERSTANDING OF THE BENEFITS OF TRANSFUSION, WELL ALLERGIC RX SYMPTOMS. NO FURTHER ORDERS. Objective - Vital Signs/Intake and Output Vital Signs (last 24 hours): Temp Pulse Resp BP Pulse Ox 98.6 F 103 H 20 106/61 20 L 11/03/17 07:45 11/03/17 07:45 11/03/17 07:45 11/03/17 07:45 11/03/17 07:45 Intake and Output: 11/03/17 11/03/17 06:59 18:59 Intake Total 930 Output Total 800 Balance 130 - Medications Medications: Current Medications Ascorbic Acid (Vitamin C 500 Mg Tab) 500 mg PO DAILY [facility] Last Admin: 11/03/17 11:26 Dose: Not Given Divalproex Sodium (Depakote Sprinkles) 125 mg PO BID [facility] Last Admin: 11/03/17 11:24 Dose: Not Given Enoxaparin Sodium (Lovenox) 30 mg SC DAILY [facility] Last Admin: 11/03/17 11:25 Dose: Not Given Folic Acid (Folic Acid) 1 mg PO DAILY [facility] Last Admin: 11/03/17 11:25 Dose: Not Given Dextrose/Sodium Chloride (Dextrose 5%/0.9% Ns 1000 Ml) 1,000 mls @ 150 mls/hr IV .Q6H40M [facility] Last Admin: 11/03/17 11:24 Dose: Not Given Vancomycin/Sodium Chloride (Vancomycin 1 Gm/Ns 200 Ml) 1 gm in 200 mls @ 133.333 mls/hr IVPB Q24H [facility] PRN Reason: Protocol Stop: 11/06/17 20:31 Last Admin: 11/02/17 19:45 Dose: 133.333 mls/hr Piperacillin Sod/Tazobactam (Sod 3.375 gm/ Sodium Chloride) 100 mls @ 200 mls/ hr IVPB Q8H [facility] PRN Reason: Protocol Last Admin: 11/03/17 11:29 Dose: 200 mls/hr Metronidazole (Flagyl) 500 mg in 100 mls @ 100 mls/hr IVPB Q8 [facility] PRN Reason: Protocol Last Admin: 11/03/17 05:32 Dose: 100 mls/hr Dextrose (Dextrose 5% In Water 1000 Ml) 1,000 mls @ 100 mls/hr IV .Q10H [facility] Levetiracetam (Keppra) 500 mg PO BID [facility] Last Admin: 11/03/17 11:25 Dose: Not Given Memantine (Namenda) 10 mg PO BID [facility] Last Admin: 11/03/17 11:25 Dose: Not Given Pantoprazole Sodium (Protonix Inj) 40 mg IVP DAILY [facility] Last Admin: 11/03/17 11:25 Dose: Not Given Risperidone (Risperdal Tab) 0.5 mg PO TID [facility] Last Admin: 11/03/17 11:26 Dose: Not Given Vitamin B Complex/Folic Acid (Berroca) 1 tab PO DAILY [facility] Last Admin: 11/03/17 11:24 Dose: Not Given Vitamin E (Vitamin E 400 Units Cap) 400 intlu PO DAILY [facility] Last Admin: 11/03/17 11:26 Dose: Not Given Zinc Sulfate (Zinc Sulfate 220 Mg Cap) 220 mg PO DAILY [facility] Last Admin: 11/03/17 11:26 Dose: Not Given - Labs Labs: 11/03/17 07:18 11/03/17 07:18 PT 17.1 SECONDS (9.7-12.2) H 11/01/17 15:42 INR 1.5 11/01/17 15:42 APTT 26 SECONDS (21-34) 11/01/17 15:42
--- NOTE | 2017-11-03 16:51 | CP.PCM.PN ---
Subjective - Date & Time of Evaluation Date of Evaluation: 11/03/17 Time of Evaluation: 16:00 - Subjective Subjective: Pt seen and examined at bedside, he gets agitated, his aunt on bedside, inabilty to thrive due to advancing alzehmiers, pt is on wound carre, antibiotics, some what beter on Iv fluids, his Na was up Objective - Vital Signs/Intake and Output Vital Signs (last 24 hours): Temp Pulse Resp BP Pulse Ox 97.8 F 109 H 14 133/71 20 L 11/03/17 15:40 11/03/17 15:40 11/03/17 15:40 11/03/17 15:40 11/03/17 07:45 Intake and Output: 11/03/17 11/03/17 06:59 18:59 Intake Total 930 0 Output Total 800 1150 Balance 130 -1150 - Medications Medications: Current Medications Ascorbic Acid (Vitamin C 500 Mg Tab) 500 mg PO DAILY [facility] Last Admin: 11/03/17 11:26 Dose: Not Given Divalproex Sodium (Depakote Sprinkles) 125 mg PO BID [facility] Last Admin: 11/03/17 11:24 Dose: Not Given Enoxaparin Sodium (Lovenox) 30 mg SC DAILY [facility] Last Admin: 11/03/17 10:45 Dose: 30 mg Folic Acid (Folic Acid) 1 mg PO DAILY [facility] Last Admin: 11/03/17 11:25 Dose: Not Given Dextrose/Sodium Chloride (Dextrose 5%/0.9% Ns 1000 Ml) 1,000 mls @ 150 mls/hr IV .Q6H40M [facility] Last Admin: 11/03/17 11:24 Dose: Not Given Vancomycin/Sodium Chloride (Vancomycin 1 Gm/Ns 200 Ml) 1 gm in 200 mls @ 133.333 mls/hr IVPB Q24H [facility] PRN Reason: Protocol Stop: 11/06/17 20:31 Last Admin: 11/02/17 19:45 Dose: 133.333 mls/hr Piperacillin Sod/Tazobactam (Sod 3.375 gm/ Sodium Chloride) 100 mls @ 200 mls/ hr IVPB Q8H [facility] PRN Reason: Protocol Last Admin: 11/03/17 11:29 Dose: 200 mls/hr Metronidazole (Flagyl) 500 mg in 100 mls @ 100 mls/hr IVPB Q8 [facility] PRN Reason: Protocol Last Admin: 11/03/17 13:44 Dose: 100 mls/hr Dextrose (Dextrose 5% In Water 1000 Ml) 1,000 mls @ 100 mls/hr IV .Q10H [facility] Levetiracetam (Keppra) 500 mg PO BID [facility] Last Admin: 11/03/17 11:25 Dose: Not Given Memantine (Namenda) 10 mg PO BID [facility] Last Admin: 11/03/17 11:25 Dose: Not Given Pantoprazole Sodium (Protonix Inj) 40 mg IVP DAILY [facility] Last Admin: 11/03/17 10:45 Dose: 40 mg Risperidone (Risperdal Tab) 0.5 mg PO TID [facility] Last Admin: 11/03/17 11:26 Dose: Not Given Vitamin B Complex/Folic Acid (Berroca) 1 tab PO DAILY [facility] Last Admin: 11/03/17 11:24 Dose: Not Given Vitamin E (Vitamin E 400 Units Cap) 400 intlu PO DAILY [facility] Last Admin: 11/03/17 11:26 Dose: Not Given Zinc Sulfate (Zinc Sulfate 220 Mg Cap) 220 mg PO DAILY [facility] Last Admin: 11/03/17 11:26 Dose: Not Given - Labs Labs: 11/03/17 07:18 11/03/17 07:18 PT 17.1 SECONDS (9.7-12.2) H 11/01/17 15:42 INR 1.5 11/01/17 15:42 APTT 26 SECONDS (21-34) 11/01/17 15:42 - Constitutional Appears: No Acute Distress - Head Exam Head Exam: ATRAUMATIC, NORMAL INSPECTION, NORMOCEPHALIC - ENT Exam ENT Exam: Mucous Membranes Moist, Normal Exam - Neck Exam Neck Exam: Full ROM, Normal Inspection. absent: Lymphadenopathy - Respiratory Exam Respiratory Exam: Clear to Ausculation Bilateral, NORMAL BREATHING PATTERN - Cardiovascular Exam Cardiovascular Exam: REGULAR RHYTHM, +S1, +S2. absent: Murmur - GI/Abdominal Exam GI & Abdominal Exam: Soft, Normal Bowel Sounds. absent: Tenderness - Rectal Exam Rectal Exam: NORMAL INSPECTION - Neurological Exam Neurological Exam: Alert, Awake, CN II-XII Intact, Normal Gait, Oriented x3 - Psychiatric Exam Psychiatric exam: Normal Affect, Normal Mood Assessment and Plan (1) Sacral decubitus ulcer, stage III Status: Acute (2) HTN (hypertension) Status: Acute (3) Alzheimer disease Status: Acute (4) Weakness Status: Acute
[2017-11-03] MEDS: Potassium Ch 20mEq in D5W 1,000 ML IV SCH ×2 (18:25→23:10)
[2017-11-03] MEDS: Vancomycin 1 gm/NS 200 ml 1 GM/200 ML BAG IVPB SCH (20:18)
[2017-11-04] MEDS: Piperacillin/Tazobact 3.375 GM in Sodium Chloride 100 ML IVPB SCH ×3 (02:59→18:42)
[2017-11-04] MEDS: metroNIDAZOLE IV 500 mg/100 ml 500 MG/100 ML BAG IVPB SCH ×3 (05:16→21:53)
[2017-11-04 06:35] LABS: HEMOGLOBIN 10.3 g/dL (12.0-18.0); MEAN CELL VOLUME 84.3 fL (80.0-94.0); MEAN CORPUSCULAR HEMOGLOBIN 27.7 pg (27.0-31.0); MEAN CORPUSCULAR HGB CONC 32.8 g/dL (33.0-37.0); MEAN PLATELET VOLUME 7.6 fL (7.2-11.7); RBC 3.71 Mil/uL (4.40-5.90); RED CELL DISTRIBUTION WIDTH 14.4 % (11.5-14.5); WHITE BLOOD COUNT 12.5 K/uL (4.8-10.8)
[2017-11-04 06:54] LABS: ALB/GLOB RATIO 0.6 (1.0-2.1); ALBUMIN 2.4 g/dL (3.5-5.0); ALT/SGPT 20 U/L (21-72); AST/SGOT 27 U/L (17-59); BLOOD UREA NITROGEN 12 mg/dL (9-20); CALCIUM 7.9 mg/dl (8.6-10.4); GFR AFRICAN-AMERICAN > 60; GFR NON-AFRICAN AMERICAN > 60
[2017-11-04 06:59] LABS: INR 1.7; PROTHROMBIN TIME 18.6 SECONDS (9.7-12.2)
[2017-11-04] MEDS ORDERED: Phytonadione 10 mg/ml Inj (Adult) SC STA (07:18)
--- NOTE | 2017-11-04 08:54 | CP.PCM.PN ---
Subjective - Date & Time of Evaluation Date of Evaluation: 11/04/17 Time of Evaluation: 18:00 - Subjective Subjective: Pt seen and evaluated today , is more akert, less tacycarrdi, less tacypneac, no fever, he is calm Objective - Vital Signs/Intake and Output Vital Signs (last 24 hours): Temp Pulse Resp BP Pulse Ox 100.7 F H 107 H 18 141/73 97 11/04/17 08:15 11/04/17 08:15 11/04/17 08:15 11/04/17 08:15 11/04/17 08:15 Intake and Output: 11/04/17 11/04/17 06:59 18:59 Intake Total 325 Output Total 1200 Balance -875 - Medications Medications: Current Medications Ascorbic Acid (Vitamin C 500 Mg Tab) 500 mg PO DAILY [facility] Last Admin: 11/03/17 11:26 Dose: Not Given Divalproex Sodium (Depakote Sprinkles) 125 mg PO BID [facility] Last Admin: 11/03/17 18:24 Dose: 125 mg Folic Acid (Folic Acid) 1 mg PO DAILY [facility] Last Admin: 11/03/17 14:00 Dose: 1 mg Vancomycin/Sodium Chloride (Vancomycin 1 Gm/Ns 200 Ml) 1 gm in 200 mls @ 133.333 mls/hr IVPB Q24H [facility] PRN Reason: Protocol Stop: 11/06/17 20:31 Last Admin: 11/03/17 20:18 Dose: Not Given Piperacillin Sod/Tazobactam (Sod 3.375 gm/ Sodium Chloride) 100 mls @ 200 mls/ hr IVPB Q8H [facility] PRN Reason: Protocol Last Admin: 11/04/17 02:59 Dose: 200 mls/hr Metronidazole (Flagyl) 500 mg in 100 mls @ 100 mls/hr IVPB Q8 [facility] PRN Reason: Protocol Last Admin: 11/04/17 05:16 Dose: 100 mls/hr Potassium Chloride/Dextrose (Potassium Chl 20 Meq In D5w) 1,000 mls @ 100 mls/ hr IV .Q10H [facility] Last Admin: 11/03/17 23:10 Dose: 100 mls/hr Levetiracetam (Keppra) 500 mg PO BID [facility] Last Admin: 11/03/17 18:23 Dose: 500 mg Memantine (Namenda) 10 mg PO BID [facility] Last Admin: 11/03/17 18:23 Dose: 10 mg Pantoprazole Sodium (Protonix Inj) 40 mg IVP DAILY [facility] Last Admin: 11/03/17 10:45 Dose: 40 mg Risperidone (Risperdal Tab) 0.5 mg PO TID [facility] Last Admin: 11/03/17 18:24 Dose: 0.5 mg Vitamin B Complex/Folic Acid (Berroca) 1 tab PO DAILY [facility] Last Admin: 11/03/17 14:00 Dose: 1 tab Vitamin E (Vitamin E 400 Units Cap) 400 intlu PO DAILY [facility] Last Admin: 11/03/17 14:00 Dose: 400 intlu Zinc Sulfate (Zinc Sulfate 220 Mg Cap) 220 mg PO DAILY [facility] Last Admin: 11/03/17 14:00 Dose: 220 mg - Labs Labs: 11/04/17 06:29 11/04/17 06:29 PT 18.6 SECONDS (9.7-12.2) H 11/04/17 06:29 INR 1.7 11/04/17 06:29 APTT 31 SECONDS (21-34) D 11/04/17 06:29 - Constitutional Appears: No Acute Distress - Head Exam Head Exam: ATRAUMATIC, NORMAL INSPECTION, NORMOCEPHALIC - Eye Exam Eye Exam: EOMI, Normal appearance, PERRL Pupil Exam: NORMAL ACCOMODATION, PERRL - Respiratory Exam Respiratory Exam: Clear to Ausculation Bilateral, NORMAL BREATHING PATTERN - Cardiovascular Exam Cardiovascular Exam: REGULAR RHYTHM, +S1, +S2. absent: Murmur - GI/Abdominal Exam GI & Abdominal Exam: Soft, Normal Bowel Sounds. absent: Tenderness - Rectal Exam Rectal Exam: Deferred Assessment and Plan (1) Sacral decubitus ulcer, stage III Status: Acute (2) HTN (hypertension) Status: Acute (3) Alzheimer disease Status: Acute (4) Weakness Status: Acute (5) Hypernatremia Status: Acute (6) Hypokalemia Status: Acute (7) Dehydration Status: Acute (8) Failure to thrive Status: Acute
[2017-11-04] MEDS: Divalproex 125 mg Sprinkle Capsule PO SCH ×2 (10:03→17:37)
--- NOTE | 2017-11-04 11:03 | PN ---
DATE: 11/04/2017 LOCATION: 660, bed B. SUBJECTIVE: This is a 72-year-old male seen and examined in rounds without significant clinical changes, with very poor oral intake and without any new complaints. Denied any chest pain or abdominal pain. No reported active bleeding. The entire chart is reviewed including but not limited to most recent lab and radiology study results, current and the previous medication list, current and the previous medical events. Today's lab showed leukocytosis of 12.5, hemoglobin 10.3, hematocrit 31.3. PT of 18.6. Sodium 155, potassium 3.7, normal BUN, with low creatinine, calcium 7.6, albumin 2.4, total protein 6.1. PHYSICAL EXAMINATION: GENERAL: A 72-year-old male. VITAL SIGNS: Low -grade temperature 99.2, heart rate 98, respiratory rate of 20 to 22, blood pressure of 108/66. HEENT: Showed pale, dry, oral mucous membranes. Nonicteric sclerae. LUNGS: Scattered crepitations. Decreased air entry at bases. HEART: Positive S1 and S2. ABDOMEN: Soft, with mild generalized tenderness. No mass or organomegaly. No rebound tenderness or guarding. NEUROLOGIC: No reported new neurological deficits, sensory or motor. EXTREMITIES: With mild lower extremity edematous changes and mild contractions. It has to be mentioned that the patient is status post blood transfusion. IMPRESSION: 1. Failure to thrive. 2. Severe anemia, however, no evidence of active bleeding in the meantime. 3. Coagulopathy, most likely drug induced. 4. Known history of major depression with dementia. 5. Septicemia. 6. Known history of seizure disorder, peptic ulcer disease, alcoholism. 7. Electrolyte imbalance with hypernatremia, hypokalemia, hypocalcemia. SUGGESTIONS: 1. Continue current management. 2. Correct any underlying electrolyte imbalance. 3. Vitamin K subcu. 4. The patient is to be scheduled for PEG insertion when he is more stable clinically and after full control of his septicemia. 5. Peripheral hyperalimentation. 6. The patient may need fresh frozen plasma transfusion prior to his PEG insertion, if his PT and PTT to be elevated. Otherwise, close observation to follow. Candice Morrissey MD [facility] # [phone]
[2017-11-04] MEDS: Potassium Ch 20mEq in D5W 1,000 ML IV SCH ×2 (11:21→13:43)
--- NOTE | 2017-11-04 12:46 | RAD ---
HISTORY: Elevated heart rate respiratory rate COMPARISON: Comparison made with chest radiograph dated 11/01/2017 FINDINGS: LUNGS: Re- demonstrated is mild patchy atelectasis and/or infiltrate right lung base with increased mild central pulmonary vasculature suggesting underlying element of mild chronic compensated pulmonary edema -CHF versus is diffuse infiltrates. Persistent significant left apical pleural thickening and adjacent parenchymal scarring. . Rule out underlying COPD or emphysema. PLEURA: As above. No apparent pneumothorax CARDIOVASCULAR: Normal. OSSEOUS STRUCTURES: No significant abnormalities. VISUALIZED UPPER ABDOMEN: Normal. OTHER FINDINGS: None. IMPRESSION: Re- demonstrated is mild patchy atelectasis and/or infiltrate right lung base with increased mild central pulmonary vasculature suggesting underlying element of mild chronic compensated pulmonary edema -CHF versus is diffuse infiltrates. Persistent significant left apical pleural thickening and adjacent parenchymal scarring. . Rule out underlying COPD or emphysema.
[2017-11-04] MEDS: Vancomycin 1 gm/NS 200 ml 1 GM/200 ML BAG IVPB SCH (20:18)
[2017-11-04 20:52] LABS: BASO % 0.3 % (0.0-2.0); EOS % 0.3 % (0.0-4.0); HEMOGLOBIN 10.4 g/dL (12.0-18.0); LYMPH # 2.2 K/uL (1.0-4.3); LYMPH % 15.7 % (20.0-40.0); MEAN CELL VOLUME 84.3 fL (80.0-94.0); MEAN CORPUSCULAR HEMOGLOBIN 27.9 pg (27.0-31.0); MEAN CORPUSCULAR HGB CONC 33.1 g/dL (33.0-37.0); MEAN PLATELET VOLUME 7.6 fL (7.2-11.7); MONO # 0.7 K/uL (0.0-0.8); MONO % 4.9 % (0.0-10.0); NEUT % 78.8 % (50.0-75.0); RBC 3.71 Mil/uL (4.40-5.90); RED CELL DISTRIBUTION WIDTH 14.6 % (11.5-14.5); WHITE BLOOD COUNT 13.9 K/uL (4.8-10.8)
[2017-11-04 20:57] LABS: ABG ALLEN TEST POS; ARTERIAL BLOOD GAS HCO3 27.7 mmol/L (21-28); ARTERIAL BLOOD GAS PCO2 33 mm/Hg (35-45); ARTERIAL BLOOD GAS PH 7.51 (7.35-7.45); ARTERIAL BLOOD GAS PO2 91 mm/Hg (80-100); ARTERIAL BLOOD GAS TCO2 27.3 mmol/L (22-28)
[2017-11-04 21:11] LABS: ALB/GLOB RATIO 0.6 (1.0-2.1); ALBUMIN 2.4 g/dL (3.5-5.0); ALT/SGPT 19 U/L (21-72); AST/SGOT 26 U/L (17-59); BLOOD UREA NITROGEN 12 mg/dL (9-20); CALCIUM 7.6 mg/dl (8.6-10.4); GFR AFRICAN-AMERICAN > 60; GFR NON-AFRICAN AMERICAN > 60
[2017-11-05] MEDS: Potassium Ch 20mEq in D5W 1,000 ML IV SCH ×3 (00:29→11:43)
--- NOTE | 2017-11-05 02:28 | CP.PCM.PN ---
Subjective - Date & Time of Evaluation Date of Evaluation: 11/05/17 Time of Evaluation: 17:40 - Subjective Subjective: pt seen and examined at bedside Objective - Vital Signs/Intake and Output Vital Signs (last 24 hours): Temp Pulse Resp BP Pulse Ox 99.9 F H 96 H 18 120/68 96 11/04/17 23:14 11/04/17 23:14 11/04/17 23:14 11/04/17 23:14 11/04/17 23:14 Intake and Output: 11/04/17 11/05/17 18:59 06:59 Intake Total 1140 Output Total 400 Balance 740 - Medications Medications: Current Medications Ascorbic Acid (Vitamin C 500 Mg Tab) 500 mg PO DAILY [facility] Last Admin: 11/04/17 10:02 Dose: 500 mg Divalproex Sodium (Depakote Sprinkles) 125 mg PO BID [facility] Last Admin: 11/04/17 17:37 Dose: 125 mg Folic Acid (Folic Acid) 1 mg PO DAILY [facility] Last Admin: 11/04/17 10:02 Dose: 1 mg Vancomycin/Sodium Chloride (Vancomycin 1 Gm/Ns 200 Ml) 1 gm in 200 mls @ 133.333 mls/hr IVPB Q24H [facility] PRN Reason: Protocol Stop: 11/06/17 20:31 Last Admin: 11/04/17 20:18 Dose: 133.333 mls/hr Piperacillin Sod/Tazobactam (Sod 3.375 gm/ Sodium Chloride) 100 mls @ 200 mls/ hr IVPB Q8H [facility] PRN Reason: Protocol Last Admin: 11/04/17 18:42 Dose: 200 mls/hr Metronidazole (Flagyl) 500 mg in 100 mls @ 100 mls/hr IVPB Q8 [facility] PRN Reason: Protocol Last Admin: 11/04/17 21:53 Dose: 100 mls/hr Potassium Chloride/Dextrose (Potassium Chl 20 Meq In D5w) 1,000 mls @ 100 mls/ hr IV .Q10H [facility] Last Admin: 11/05/17 00:31 Dose: 100 mls/hr Levetiracetam (Keppra) 500 mg PO BID [facility] Last Admin: 11/04/17 17:37 Dose: 500 mg Memantine (Namenda) 10 mg PO BID [facility] Last Admin: 11/04/17 17:37 Dose: 10 mg Pantoprazole Sodium (Protonix Inj) 40 mg IVP DAILY [facility] Last Admin: 11/04/17 10:02 Dose: 40 mg Risperidone (Risperdal Tab) 0.5 mg PO TID [facility] Last Admin: 11/04/17 17:37 Dose: 0.5 mg Vitamin B Complex/Folic Acid (Berroca) 1 tab PO DAILY [facility] Last Admin: 11/04/17 10:04 Dose: 1 tab Vitamin E (Vitamin E 400 Units Cap) 400 intlu PO DAILY [facility] Last Admin: 11/04/17 10:04 Dose: 400 intlu Zinc Sulfate (Zinc Sulfate 220 Mg Cap) 220 mg PO DAILY [facility] Last Admin: 11/04/17 10:03 Dose: 220 mg - Labs Labs: 11/04/17 20:47 11/04/17 20:47 PT 18.6 SECONDS (9.7-12.2) H 11/04/17 06:29 INR 1.7 11/04/17 06:29 APTT 31 SECONDS (21-34) D 11/04/17 06:29 Assessment and Plan (1) Sacral decubitus ulcer, stage III Status: Acute (2) HTN (hypertension) Status: Acute (3) Alzheimer disease Status: Acute (4) Weakness Status: Acute (5) Hypernatremia Status: Acute (6) Hypokalemia Status: Acute (7) Dehydration Status: Acute (8) Failure to thrive Status: Acute
[2017-11-05] MEDS: Piperacillin/Tazobact 3.375 GM in Sodium Chloride 100 ML IVPB SCH ×3 (02:40→18:37)
[2017-11-05] MEDS: metroNIDAZOLE IV 500 mg/100 ml 500 MG/100 ML BAG IVPB SCH ×3 (05:27→21:56)
[2017-11-05 07:51] LABS: INR 1.8; PROTHROMBIN TIME 19.2 SECONDS (9.7-12.2)
[2017-11-05] MEDS ORDERED: Iodixanol 320 MG/ML 100 ML BOTTLE IV ONE (08:10)
[2017-11-05] MEDS: Divalproex 125 mg Sprinkle Capsule PO SCH ×2 (09:37→17:31)
--- NOTE | 2017-11-05 11:42 | RAD ---
HISTORY: SOB COMPARISON: Comparison chest 11/03/2017 FINDINGS: LUNGS: Re- demonstrated is chronic left apical pleural thickening and adjacent fibrosis -scarring. . Volume loss left janeth thorax stable Minor bibasilar atelectasis with interval improvement of in atelectasis and/or infiltrate right lower lobe. PLEURA: No significant pleural effusion identified, no pneumothorax apparent. CARDIOVASCULAR: Normal. OSSEOUS STRUCTURES: No significant abnormalities. VISUALIZED UPPER ABDOMEN: Normal. OTHER FINDINGS: None. IMPRESSION: Re- demonstrated is chronic left apical pleural thickening and adjacent fibrosis -scarring. . Volume loss left janeth thorax stable Minor bibasilar atelectasis with interval improvement of in atelectasis and/or infiltrate right lower lobe.
--- NOTE | 2017-11-05 11:43 | PN ---
DATE: 11/05/2017 LOCATION: 660, bed B. SUBJECTIVE: This is a 72-year-old male seen and examined in rounds today with the staff in the floor, without significant clinical changes, with reported increased respiratory rate during the night as per the nursing staff. Most recent lab results showed leukocytosis of 13.9, with low hemoglobin and hematocrit, but normal platelet count with increased PT to 18.6, and abnormal ABGs, with elevated blood glucose level, low calcium, low CO2 content and low albumin. It has to be mentioned that we are still awaiting for consent from the legal guardian for potential PEG insertion so far. PHYSICAL EXAMINATION GENERAL: A 72-year-old male. VITAL SIGNS: Low-grade temperature, heart rate of 90, respiratory rate of 20 to 22, blood pressure of 124/66. HEENT: Showed pale, dry oral mucous membranes. Nonicteric sclerae. LUNGS: Few scattered crepitation. Decreased air entry at bases. HEART: Positive S1 and S2. ABDOMEN: Soft with mild generalized tenderness. No mass or organomegaly. No rebound tenderness or guarding. EXTREMITIES: With contractions in upper extremities mainly. No clubbing or cyanosis, but edematous changes. NEUROLOGIC: No reported new neurological deficits, sensory or motor. IMPRESSION: 1. Failure to thrive. 2. Hypoalbuminemia, hypoproteinemia. 3. Coagulopathy. 4. Known history of major depression with dementia. 5. Electrolyte imbalance. 6. Seizure disorder. 7. Known history of alcoholism with peptic ulcer disease. SUGGESTIONS: 1. Continue current management. 2. Due to the patient's coagulopathy, fresh frozen plasma to be given before the PEG insertion at a.m. Candice Morrissey MD
--- NOTE | 2017-11-05 14:28 | CT ---
PROCEDURE: CT abdomen pelvis dated 11/05/2017 HISTORY: Abdominal pain, acute drop in h/h, no obvious source COMPARISON: No prior study available for comparison TECHNIQUE: Contiguous axial images of the abdomen and pelvis of performed following intravenous injection of approximately 100 cc Visipaque 320 contrast material. Additional 2D sagittal and coronal reformats generated. Mid. Note that this study is extremely limited due to streak and beam hardening artifact arising from the upper extremities which have not been moved from the field of view as well as cardiac monitoring hardware and flexion contractures of the lower extremities exacerbated by the presence of in situ medullary fixation rods within both femurs. Radiation dose: Total exam DLP = This CT exam was performed using one or more of the following dose reduction techniques: Automated exposure control, adjustment of the mA and/or kV according to patient size, and/or use of iterative reconstruction technique. FINDINGS: LOWER THORAX: Lung bases are mild atelectasis and or scarring changes both lung bases including the lingular and middle lobe regions. No effusion or basilar pneumothorax. Heart size is. LIVER: The liver is poorly seen due to the aforementioned artifact. Note definitive masses or collections. Portal and splenic veins are do appear opacified. GALLBLADDER AND BILE DUCTS: What is felt to represent the gallbladder appears distended. Common bile duct also appears dilated. PANCREAS: Pancreas is also poorly seen though appears grossly unremarkable. Pancreatic duct is is visible though does not appear significantly dilated. SPLEEN: Spleen is poorly delineated. ADRENALS: No obvious adrenal lesions KIDNEYS AND URETERS: The kidneys demonstrate relatively symmetric nephrograms. Multiple varying sized low-attenuation foci scattered throughout both kidneys consistent with renal cysts. Follow-up ultrasound could be performed for further evaluation if indicated. BLADDER: There is partial obscuration of the urinary bladder due to the aforementioned more significant streak artifact arising from metallic intramedullary fixation rods both femurs. Urinary bladder appears incompletely distended which presumably in part accounts for thick-walled appearance. Muscular hypertrophy presumably contributes. The possibility of cystitis or other intrinsic/invasive bladder wall lesion not excluded. There is an in situ Murray catheter, the inflated balloon of which appears to be within bulbous portion of the urethra and must be repositioned. . REPRODUCTIVE: The prostate gland partially obscured by the streak and beam hardening artifact. APPENDIX: Appendix is not seen with any certainty. BOWEL: Evaluation of the bowel is limited due to the lack of oral contrast material as well as a marked paucity of intraperitoneal and retroperitoneal fat. Stomach is not definitively identified due to a large amount of stool within the colon will which has been detailed below. . There is a very large amount of stool throughout the colon and in particular the rectum cyst sigmoid and descending as well as distal transverse colon consistent with marked fecal impaction. There appears to be a large amount of fluid within right colon and cecal region. The visualized loops of small bowel are compressed and poorly delineated. . There appears to be marked wall thickening of the rectum nonspecific. Proctoscopy and/or colonoscopy may be prudent. PERITONEUM: No gross free intraperitoneal so far as can be seen. No obvious loculated fluid collections. LYMPH NODES: Evaluation for adenopathy is limited though no gross -bulky adenopathy is identified. VASCULATURE: Unremarkable. No aortic aneurysm. BONES: Mild multilevel fish-mouth endplate deformities of the lumbar spine. Mild multilevel degenerative spondylosis seen in the visualized lower thoracic and lumbar segments. OTHER FINDINGS: None. IMPRESSION: Extremely limited study as described. In situ Murray cold catheter, the inflated balloon of which is located in the bulbous urethra and must be repositioned. Urinary bladder is incompletely distended which in part accounts for thick-walled appearance muscular hypertrophy may contribute. Rule out cystitis versus other intrinsic/invasive wall lesion. Findings consistent with significant fecal impaction. There is wall thickening of the rectum which is nonspecific. Follow-up proctoscopy or colonoscopy recommended. Multiple bilateral renal cysts. Mild bibasilar atelectasis Marked cachexia. See above discussion for additional details and findings. Note these findings were discussed with 6 owat[place]er nurse Dileep at approximately 2:18 p.m. with written down and read back verification.
[2017-11-05] MEDS: Vancomycin 1 gm/NS 200 ml 1 GM/200 ML BAG IVPB SCH (20:10)
[2017-11-06] MEDS: Piperacillin/Tazobact 3.375 GM in Sodium Chloride 100 ML IVPB SCH ×3 (03:28→18:29)
[2017-11-06] MEDS: Potassium Ch 20mEq in D5W 1,000 ML IV SCH ×2 (07:25→16:45)
[2017-11-06] MEDS: metroNIDAZOLE IV 500 mg/100 ml 500 MG/100 ML BAG IVPB SCH ×3 (07:25→21:51)
[2017-11-06] MEDS: Divalproex 125 mg Sprinkle Capsule PO SCH ×2 (09:50→18:29)
[2017-11-06] MEDS ORDERED: Lactated Ringer's 1,000 ML IV ONE (14:15)
[2017-11-06] MEDS ORDERED: Propofol 10 mg/ml Inj (20 ML) ONE (14:21)
--- NOTE | 2017-11-06 16:37 | CARD ---
APPROVED REPORT EKG Measurement Heart [id number] <Conclusion> Sinus tachycardia Rightward axis Nonspecific T wave abnormality Abnormal ECG
[2017-11-06] MEDS: Fluconazole IV 100mg/50 ml NS 50 ML IVPB SCH (18:29)
[2017-11-06] MEDS: Vancomycin 1 gm/NS 200 ml 1 GM/200 ML BAG IVPB SCH (20:50)
--- NOTE | 2017-11-07 01:18 | CP.PCM.PN ---
Subjective - Date & Time of Evaluation Date of Evaluation: 11/06/17 Time of Evaluation: 17:00 - Subjective Subjective: Pt seen and examined Objective - Vital Signs/Intake and Output Vital Signs (last 24 hours): Temp Pulse Resp BP Pulse Ox 98.2 F 102 H 20 144/82 99 11/06/17 15:05 11/06/17 16:00 11/06/17 15:05 11/06/17 15:05 11/06/17 15:05 Intake and Output: 11/06/17 11/07/17 18:59 06:59 Intake Total 650 833 Output Total 1350 1700 Balance -700 -937 - Medications Medications: Current Medications Ascorbic Acid (Vitamin C 500 Mg Tab) 500 mg PO DAILY [facility] Last Admin: 11/06/17 09:49 Dose: 500 mg Divalproex Sodium (Depakote Sprinkles) 125 mg PO BID [facility] Last Admin: 11/06/17 18:29 Dose: 125 mg Folic Acid (Folic Acid) 1 mg PO DAILY [facility] Last Admin: 11/06/17 09:50 Dose: 1 mg Piperacillin Sod/Tazobactam (Sod 3.375 gm/ Sodium Chloride) 100 mls @ 200 mls/ hr IVPB Q8H [facility] PRN Reason: Protocol Last Admin: 11/06/17 18:29 Dose: 200 mls/hr Metronidazole (Flagyl) 500 mg in 100 mls @ 100 mls/hr IVPB Q8 [facility] PRN Reason: Protocol Last Admin: 11/06/17 21:51 Dose: 100 mls/hr Potassium Chloride/Dextrose (Potassium Chl 20 Meq In D5w) 1,000 mls @ 100 mls/ hr IV .Q10H [facility] Last Admin: 11/06/17 16:45 Dose: Not Given Fluconazole (Diflucan Iv 100 Mg/50 Ml Ns) 50 mls @ 100 mls/hr IVPB DAILY [facility] PRN Reason: Protocol Last Admin: 11/06/17 18:29 Dose: 100 mls/hr Levetiracetam (Keppra) 500 mg PO BID [facility] Last Admin: 11/06/17 18:29 Dose: 500 mg Memantine (Namenda) 10 mg PO BID [facility] Last Admin: 11/06/17 18:29 Dose: 10 mg Pantoprazole Sodium (Protonix Inj) 40 mg IVP DAILY [facility] Last Admin: 11/06/17 09:51 Dose: 40 mg Risperidone (Risperdal Tab) 0.5 mg PO TID [facility] Last Admin: 11/06/17 18:29 Dose: 0.5 mg Vitamin B Complex/Folic Acid (Berroca) 1 tab PO DAILY [facility] Last Admin: 11/06/17 09:50 Dose: 1 tab Vitamin E (Vitamin E 400 Units Cap) 400 intlu PO DAILY [facility] Last Admin: 11/06/17 09:50 Dose: 400 intlu Zinc Sulfate (Zinc Sulfate 220 Mg Cap) 220 mg PO DAILY [facility] Last Admin: 11/06/17 09:49 Dose: 220 mg - Labs Labs: 11/04/17 20:47 11/04/17 20:47 PT 19.2 SECONDS (9.7-12.2) H 11/05/17 07:39 INR 1.8 11/05/17 07:39 APTT 31 SECONDS (21-34) 11/05/17 07:39 Assessment and Plan (1) Sacral decubitus ulcer, stage III Status: Acute (2) HTN (hypertension) Status: Acute (3) Alzheimer disease Status: Acute (4) Weakness Status: Acute (5) Hypernatremia Status: Acute (6) Hypokalemia Status: Acute (7) Dehydration Status: Acute (8) Failure to thrive Status: Acute
[2017-11-07] MEDS: Potassium Ch 20mEq in D5W 1,000 ML IV SCH ×4 (02:26→21:13)
[2017-11-07] MEDS: Piperacillin/Tazobact 3.375 GM in Sodium Chloride 100 ML IVPB SCH ×3 (03:40→18:46)
[2017-11-07] MEDS: metroNIDAZOLE IV 500 mg/100 ml 500 MG/100 ML BAG IVPB SCH ×3 (06:06→14:55)
[2017-11-07 07:20] LABS: HEMOGLOBIN 10.3 g/dL (12.0-18.0); MEAN CELL VOLUME 84.7 fL (80.0-94.0); MEAN CORPUSCULAR HEMOGLOBIN 27.6 pg (27.0-31.0); MEAN CORPUSCULAR HGB CONC 32.5 g/dL (33.0-37.0); RBC 3.73 Mil/uL (4.40-5.90); RED CELL DISTRIBUTION WIDTH 15.3 % (11.5-14.5); WHITE BLOOD COUNT 9.9 K/uL (4.8-10.8)
[2017-11-07 07:35] LABS: BLOOD UREA NITROGEN 7 mg/dL (9-20); CALCIUM 7.9 mg/dl (8.6-10.4); GFR AFRICAN-AMERICAN > 60; GFR NON-AFRICAN AMERICAN > 60
[2017-11-07] MEDS: Divalproex 125 mg Sprinkle Capsule PO SCH ×2 (10:40→18:45)
--- NOTE | 2017-11-07 10:40 | PN ---
DATE: 11/07/2017 LOCATION: 660, bed B. SUBJECTIVE: This 72-year-old male seen and examined early this morning post upper endoscopy and a trial of PEG insertion, unsuccessful yesterday due to lack of visualization of the endoscope light through the anterior abdominal wall. Dr. Patel was called for surgical consultation for potential gastrostomy tube insertion. The patient still has very poor oral intake, refused to eat. The entire chart is reviewed including but not limited to the most recent lab and radiology study results, current and the previous medication list, current and the previous medical events, and today's lab results still pending. The patient still has some leukocytosis with low hemoglobin and hematocrit with low calcium, low albumin, and low total protein. PHYSICAL EXAMINATION: GENERAL: A 72-year-old male. VITAL SIGNS: With temperature 99.4, pulse of 98, respiratory rate of 20 to 22, blood pressure 150/74. HEENT: Showed pale, dry, oral mucous membranes. Nonicteric sclerae. LUNGS: Few scattered crepitations. Decreased air entry at bases. HEART: Positive S1 and S2, increased rate. ABDOMEN: Soft, bowel sounds are present. No mass or organomegaly. No rebound tenderness or guarding. Midline abdominal scar, old is seen. EXTREMITIES: With contraction and lower edematous changes. No clubbing or cyanosis. NEUROLOGIC: No reported new neurological deficits, sensory or motor. No new reported focal deficits. IMPRESSION: 1. Failure to thrive. 2. Hypoalbuminemia, hypoproteinemia. 3. Malnutrition. 4. Coagulopathy, of unclear etiology. 5. Known history of seizure disorder, major depression, and dementia. 6. Known history of peptic ulcer disease by recent upper endoscopy. 7. Alcoholism by history. SUGGESTIONS: 1. Continue current management. 2. Central hyperalimentation. 3. Surgical reevaluation for potential gastrostomy tube insertion, surgically. 4. Further recommendations to follow. Candice Morrissey MD
[2017-11-07] MEDS: Fluconazole IV 100mg/50 ml NS 50 ML IVPB SCH (10:48)
[2017-11-07] MEDS ORDERED: Propofol 10 mg/ml Inj (20 ML) ONE ×2 (14:40→14:52)
[2017-11-07] MEDS ORDERED: Lidocaine Hydrochloride 5 ML INJ ONE (14:41)
[2017-11-07] MEDS ORDERED: HYDROmorphone 0.5 mg/0.5 ml ISec IVP PRN (16:54)
[2017-11-07] MEDS ORDERED: Lactated Ringer's 1,000 ML IV ONE (17:14)
[2017-11-07] MEDS: Lactated Ringer's 1,000 ML IV SCH (18:47)
--- NOTE | 2017-11-07 22:28 | CP.PCM.PN ---
Subjective - Date & Time of Evaluation Date of Evaluation: 11/07/17 Time of Evaluation: 19:00 - Subjective Subjective: Pt seen and examined at bedside Objective - Vital Signs/Intake and Output Vital Signs (last 24 hours): Temp Pulse Resp BP Pulse Ox 98.4 F 124 H 19 154/73 H 100 11/07/17 18:00 11/07/17 18:00 11/07/17 18:00 11/07/17 18:00 11/07/17 18:00 Intake and Output: 11/07/17 11/08/17 18:59 06:59 Intake Total 1500 560 Output Total 2250 400 Balance -750 160 - Medications Medications: Current Medications Ascorbic Acid (Vitamin C 500 Mg Tab) 500 mg PO DAILY [facility] Last Admin: 11/07/17 10:38 Dose: 500 mg Divalproex Sodium (Depakote Sprinkles) 125 mg PO BID [facility] Last Admin: 11/07/17 18:45 Dose: 125 mg Folic Acid (Folic Acid) 1 mg PO DAILY [facility] Last Admin: 11/07/17 10:40 Dose: 1 mg Piperacillin Sod/Tazobactam (Sod 3.375 gm/ Sodium Chloride) 100 mls @ 200 mls/ hr IVPB Q8H [facility] PRN Reason: Protocol Last Admin: 11/07/17 18:46 Dose: 200 mls/hr Metronidazole (Flagyl) 500 mg in 100 mls @ 100 mls/hr IVPB Q8 [facility] PRN Reason: Protocol Last Admin: 11/07/17 14:55 Dose: 100 mls Potassium Chloride/Dextrose (Potassium Chl 20 Meq In D5w) 1,000 mls @ 100 mls/ hr IV .Q10H [facility] Last Admin: 11/07/17 21:13 Dose: Not Given Fluconazole (Diflucan Iv 100 Mg/50 Ml Ns) 50 mls @ 100 mls/hr IVPB DAILY [facility] PRN Reason: Protocol Last Admin: 11/07/17 10:48 Dose: 100 mls/hr Lactated Ringer's (Lactated Ringer's) 1,000 mls @ 100 mls/hr IV .Q10H [facility] Last Admin: 11/07/17 18:47 Dose: 100 mls/hr Levetiracetam (Keppra) 500 mg PO BID [facility] Last Admin: 11/07/17 18:46 Dose: 500 mg Memantine (Namenda) 10 mg PO BID [facility] Last Admin: 11/07/17 18:45 Dose: 10 mg Pantoprazole Sodium (Protonix Inj) 40 mg IVP DAILY [facility] Last Admin: 11/07/17 10:38 Dose: 40 mg Risperidone (Risperdal Tab) 0.5 mg PO TID [facility] Last Admin: 11/07/17 18:46 Dose: 0.5 mg Vitamin B Complex/Folic Acid (Berroca) 1 tab PO DAILY [facility] Last Admin: 11/07/17 10:40 Dose: 1 tab Vitamin E (Vitamin E 400 Units Cap) 400 intlu PO DAILY [facility] Last Admin: 11/07/17 10:40 Dose: 400 intlu Zinc Sulfate (Zinc Sulfate 220 Mg Cap) 220 mg PO DAILY [facility] Last Admin: 11/07/17 10:40 Dose: 220 mg - Labs Labs: 11/07/17 07:12 11/07/17 07:12 PT 19.2 SECONDS (9.7-12.2) H 11/05/17 07:39 INR 1.8 11/05/17 07:39 APTT 31 SECONDS (21-34) 11/05/17 07:39 Assessment and Plan (1) Sacral decubitus ulcer, stage III Status: Acute (2) HTN (hypertension) Status: Acute (3) Alzheimer disease Status: Acute (4) Weakness Status: Acute (5) Hypernatremia Status: Acute (6) Hypokalemia Status: Acute (7) Dehydration Status: Acute (8) Failure to thrive Status: Acute
--- NOTE | 2017-11-08 01:54 | OP ---
PROCEDURE DATE: 11/07/2017 PREOPERATIVE DIAGNOSES: 1. Malnutrition. 2. Stage 4 right ischial decubitus. POSTOPERATIVE DIAGNOSES: 1. Malnutrition. 2. Stage 4 right ischial decubitus. PROCEDURES PERFORMED: 1. Placement of Radha gastrostomy feeding tube. 2. Excision of large eschar of the right hip with drainage of right hip osteomyelitis and bone biopsy. SURGEON: James Patel MD TYPE OF ANESTHESIA: General. ESTIMATED BLOOD LOSS: 40 mL. POSTOPERATIVE CONDITION: Stable. INDICATIONS FOR SURGERY: A 72-year-old male with history of stroke and dementia contracted, who attempted placement of a PEG feeding tube yesterday, which was unsuccessful. Today, he was taken back to the operating room for placement of an open gastrostomy along with debridement of a stage 4 ischial decubitus and removal of a large eschar. DESCRIPTION OF PROCEDURE: The patient was taken to the operating room. General anesthesia was administered and the abdomen was prepped and draped. A paramedian incision was made to the left of the midline and the abdominal cavity was entered and the stomach was mobilized into the wound via lysis of adhesions as related to previous surgery. A small serosal tear of the small bowel was repaired with silk. A purse-string suture was placed in the stomach and a Flexiflo 20-Tristanian gastrostomy tube was pulled into a lateral stab wound and placed into the stomach through the purse-string suture. The purse-string suture was secured. The stomach was sutured to the abdominal wall using the same Prolene. The abdomen was closed with a running 0 Prolene suture and skin clips in the skin. Attention was then turned to the ischial area, where a large 8 cm eschar was excised via wide deep excision. This opened up the ischial space, which revealed an osteomyelitis of the hip. Multiple bone biopsies were taken. The osteomyelitis was drained and biopsies were sent for specimen. Wound was irrigated with saline and was packed with saline gauze. The patient tolerated the procedure well, returned to recovery room in stable condition. James Patel MD
--- NOTE | 2017-11-08 02:52 | CON ---
DATE: HISTORY OF PRESENT ILLNESS: This gentleman is a 72-year-old black , who was admitted to the hospital with pneumonia and dehydration, and the patient found that the Murray catheter on CAT scan is located in the prostatic fossa. It was draining, but urine was cloudy and apparently, the patient has been at the time of the voiding. PHYSICAL EXAMINATION: GENERAL: Reveal the patient contracted legs up to his chest. GENITOURINARY: Murray catheter draining, but there is suprapubic fullness and tenderness. The Murray catheter removed, show blood clot on the balloon area, inflating the balloon in the prostatic urethra. A #14 Coud Murray inserted and 400 mL of clear urine drained out. This catheter adjusted to the leg. IMPRESSION: Urinary retention, blood clots related to trauma to the prostatic urethra. We will follow him. Av Grant MD
[2017-11-08] MEDS: Piperacillin/Tazobact 3.375 GM in Sodium Chloride 100 ML IVPB SCH ×3 (02:54→19:00)
--- NOTE | 2017-11-08 04:48 | PN ---
DATE: Post re-insertion of Murray catheter and adjusting it, it is draining well. No suprapubic fullness, no tenderness. Good urine output. Av Grant MD
[2017-11-08] MEDS: metroNIDAZOLE IV 500 mg/100 ml 500 MG/100 ML BAG IVPB SCH ×3 (05:16→21:34)
[2017-11-08] MEDS: Lactated Ringer's 1,000 ML IV SCH (06:51)
[2017-11-08] MEDS: Divalproex 125 mg Sprinkle Capsule PO SCH ×2 (09:01→21:34)
[2017-11-08] MEDS: Fluconazole IV 100mg/50 ml NS 50 ML IVPB SCH (09:07)
[2017-11-08] MEDS ORDERED: Propofol 10 mg/ml Inj (20 ML) ONE (14:23)
[2017-11-08] MEDS ORDERED: Etomidate 20 mg/10ml Inj IV ONE (14:28)
[2017-11-08] MEDS ORDERED: ePHEDrine 50 mg/ml Inj ONE (14:30)
[2017-11-08] MEDS ORDERED: Rocuronium 10 mg/ml (5 ml) ONE (14:33)
--- NOTE | 2017-11-08 14:59 | PN ---
DATE: LOCATION: 660, bed B. SUBJECTIVE: This is a 72-year-old male with postoperative endoscopy and gastrostomy tube insertion and debridement of sacral decubiti, seen and examined in rounds without significant clinical changes or reported active bleeding from the feeding tube. The entire chart is reviewed including but not limited to the most recent lab and radiology study results, current and the previous medication list, current and the previous medical events. Case discussed with the staff at length. Today's lab showed hemoglobin 10.3, hematocrit 31.6 with decreased BUN and creatinine. Calcium 7.9. Had low albumin and low total protein. PHYSICAL EXAMINATION: GENERAL: A 72-year-old male. VITAL SIGNS: Afebrile with heart rate of 98, respiratory rate 20 to 22, blood pressure 106/62. HEENT: Showed pale, dry oral mucous membranes. Nonicteric sclerae. LUNGS: A few scattered crepitation. Decreased air entry at bases. HEART: Positive S1 and S2 with increased rate. ABDOMEN: Soft with mild distention. Gastrostomy tube is in place covered with clean dressing. Wound is clean. Bowel sounds are present. EXTREMITIES: Without significant clubbing, cyanosis, or new edematous changes. NEUROLOGIC: No new reported neurological deficits, sensory or motor. IMPRESSION: 1. Malnutrition. 2. Failure to thrive. 3. Peptic ulcer disease by patient's upper endoscopy. 4. Status post gastrostomy tube insertion. 5. Hypoalbuminemia and hypoproteinemia. 6. Anemia secondary to the above. 7. Coagulopathy of unclear etiology. 8. Known history but not limited to dementia, seizure disorder, major depression, and history of alcoholism. SUGGESTION: 1. Continue current management. 2. Subsequent increase of the rate of feeding as tolerated. 3. Follow up cancer markers. 4. Further recommendation to follow as per Dr. Morrissey. Candice Morrissey MD
[2017-11-08] MEDS ORDERED: Neostigmine Methylsulfate 3mg/3ml Syringe IV ONE (15:21)
[2017-11-08] MEDS ORDERED: HYDROmorphone 0.5 mg/0.5 ml ISec ONE (15:51)
[2017-11-08] MEDS: HYDROmorphone 0.5 mg/0.5 ml ISec IVP PRN ×2 (15:51→16:06)
--- NOTE | 2017-11-09 01:04 | CON ---
DATE: The patient's Murray is functioning well. No suprapubic fullness. No tenderness. No hematuria. No leaking around the catheter. The patient is stable urologically. Av Grant MD
[2017-11-09] MEDS: Piperacillin/Tazobact 3.375 GM in Sodium Chloride 100 ML IVPB SCH ×3 (03:34→18:36)
--- NOTE | 2017-11-09 04:34 | CP.PCM.PN ---
Subjective - Date & Time of Evaluation Date of Evaluation: 11/08/17 Time of Evaluation: 18:00 - Subjective Subjective: Pt seen and evaluated, no nausea, vomiting, no distress, pt will need colostomy as his sacral deubuti wound is near to anus, pt has wound culture positive for proteus mirabiluc, FOB is positive Objective - Vital Signs/Intake and Output Vital Signs (last 24 hours): Temp Pulse Resp BP Pulse Ox 99.2 F 114 H 20 124/77 94 L 11/08/17 23:55 11/08/17 23:55 11/08/17 23:55 11/08/17 23:55 11/08/17 23:55 Intake and Output: 11/08/17 11/09/17 18:59 06:59 Intake Total 800 1075 Output Total 500 700 Balance 300 375 - Medications Medications: Current Medications Ascorbic Acid (Vitamin C 500 Mg Tab) 500 mg PO DAILY [facility] Last Admin: 11/08/17 09:01 Dose: Not Given Divalproex Sodium (Depakote Sprinkles) 125 mg PO BID [facility] Last Admin: 11/08/17 21:34 Dose: 125 mg Folic Acid (Folic Acid) 1 mg PO DAILY [facility] Last Admin: 11/08/17 09:01 Dose: Not Given Piperacillin Sod/Tazobactam (Sod 3.375 gm/ Sodium Chloride) 100 mls @ 200 mls/ hr IVPB Q8H [facility] PRN Reason: Protocol Last Admin: 11/09/17 03:34 Dose: 200 mls/hr Metronidazole (Flagyl) 500 mg in 100 mls @ 100 mls/hr IVPB Q8 [facility] PRN Reason: Protocol Last Admin: 11/08/17 21:34 Dose: 100 mls/hr Potassium Chloride/Dextrose (Potassium Chl 20 Meq In D5w) 1,000 mls @ 100 mls/ hr IV .Q10H [facility] Last Admin: 11/07/17 21:13 Dose: Not Given Lactated Ringer's (Lactated Ringer's) 1,000 mls @ 100 mls/hr IV .Q10H [facility] Last Admin: 11/08/17 06:51 Dose: Not Given Levetiracetam (Keppra) 500 mg PO BID [facility] Last Admin: 11/08/17 18:35 Dose: 500 mg Memantine (Namenda) 10 mg PO BID [facility] Last Admin: 11/08/17 18:35 Dose: 10 mg Pantoprazole Sodium (Protonix Inj) 40 mg IVP DAILY [facility] Last Admin: 11/08/17 09:01 Dose: 40 mg Risperidone (Risperdal Tab) 0.5 mg PO TID [facility] Last Admin: 11/08/17 21:34 Dose: 0.5 mg Vitamin B Complex/Folic Acid (Berroca) 1 tab PO DAILY [facility] Last Admin: 11/08/17 09:00 Dose: Not Given Vitamin E (Vitamin E 400 Units Cap) 400 intlu PO DAILY [facility] Last Admin: 11/08/17 09:02 Dose: Not Given Zinc Sulfate (Zinc Sulfate 220 Mg Cap) 220 mg PO DAILY [facility] Last Admin: 11/08/17 09:02 Dose: Not Given - Labs Labs: 11/07/17 07:12 11/07/17 07:12 PT 19.2 SECONDS (9.7-12.2) H 11/05/17 07:39 INR 1.8 11/05/17 07:39 APTT 31 SECONDS (21-34) 11/05/17 07:39 Assessment and Plan (1) Sacral decubitus ulcer, stage III Assessment & Plan: sepsis Status: Acute (2) HTN (hypertension) Status: Acute (3) Alzheimer disease Status: Acute (4) Weakness Status: Acute (5) Hypernatremia Status: Acute (6) Hypokalemia Status: Acute (7) Dehydration Status: Acute (8) Failure to thrive Status: Acute (9) Psychosis Status: Acute (10) Abscess of left lung with pneumonia Status: Acute
--- NOTE | 2017-11-09 04:35 | CP.PCM.PN ---
Subjective - Date & Time of Evaluation Date of Evaluation: 11/08/17 Time of Evaluation: 16:00 - Subjective Subjective: Pt seen and evaluated, no nausea, vomiting, no distress, pt will need colostomy as his sacral deubuti wound is near to anus, pt has wound culture positive for proteus mirabiluc, FOB is positive Objective - Vital Signs/Intake and Output Vital Signs (last 24 hours): Temp Pulse Resp BP Pulse Ox 99.2 F 114 H 20 124/77 94 L 11/08/17 23:55 11/08/17 23:55 11/08/17 23:55 11/08/17 23:55 11/08/17 23:55 Intake and Output: 11/08/17 11/09/17 18:59 06:59 Intake Total 800 1075 Output Total 500 700 Balance 300 375 - Medications Medications: Current Medications Ascorbic Acid (Vitamin C 500 Mg Tab) 500 mg PO DAILY [facility] Last Admin: 11/08/17 09:01 Dose: Not Given Divalproex Sodium (Depakote Sprinkles) 125 mg PO BID [facility] Last Admin: 11/08/17 21:34 Dose: 125 mg Folic Acid (Folic Acid) 1 mg PO DAILY [facility] Last Admin: 11/08/17 09:01 Dose: Not Given Piperacillin Sod/Tazobactam (Sod 3.375 gm/ Sodium Chloride) 100 mls @ 200 mls/ hr IVPB Q8H [facility] PRN Reason: Protocol Last Admin: 11/09/17 03:34 Dose: 200 mls/hr Metronidazole (Flagyl) 500 mg in 100 mls @ 100 mls/hr IVPB Q8 [facility] PRN Reason: Protocol Last Admin: 11/08/17 21:34 Dose: 100 mls/hr Potassium Chloride/Dextrose (Potassium Chl 20 Meq In D5w) 1,000 mls @ 100 mls/ hr IV .Q10H [facility] Last Admin: 11/07/17 21:13 Dose: Not Given Lactated Ringer's (Lactated Ringer's) 1,000 mls @ 100 mls/hr IV .Q10H [facility] Last Admin: 11/08/17 06:51 Dose: Not Given Levetiracetam (Keppra) 500 mg PO BID [facility] Last Admin: 11/08/17 18:35 Dose: 500 mg Memantine (Namenda) 10 mg PO BID [facility] Last Admin: 11/08/17 18:35 Dose: 10 mg Pantoprazole Sodium (Protonix Inj) 40 mg IVP DAILY [facility] Last Admin: 11/08/17 09:01 Dose: 40 mg Risperidone (Risperdal Tab) 0.5 mg PO TID [facility] Last Admin: 11/08/17 21:34 Dose: 0.5 mg Vitamin B Complex/Folic Acid (Berroca) 1 tab PO DAILY [facility] Last Admin: 11/08/17 09:00 Dose: Not Given Vitamin E (Vitamin E 400 Units Cap) 400 intlu PO DAILY [facility] Last Admin: 11/08/17 09:02 Dose: Not Given Zinc Sulfate (Zinc Sulfate 220 Mg Cap) 220 mg PO DAILY [facility] Last Admin: 11/08/17 09:02 Dose: Not Given - Labs Labs: 11/07/17 07:12 11/07/17 07:12 PT 19.2 SECONDS (9.7-12.2) H 11/05/17 07:39 INR 1.8 11/05/17 07:39 APTT 31 SECONDS (21-34) 11/05/17 07:39 - Constitutional Appears: No Acute Distress, Chronically Ill - Head Exam Head Exam: ATRAUMATIC, NORMAL INSPECTION, NORMOCEPHALIC - Eye Exam Eye Exam: EOMI, Normal appearance, PERRL Pupil Exam: NORMAL ACCOMODATION, PERRL - Respiratory Exam Respiratory Exam: Decreased Breath Sounds, Rales, Rhonchi - Cardiovascular Exam Cardiovascular Exam: REGULAR RHYTHM, +S1, +S2. absent: Murmur - GI/Abdominal Exam GI & Abdominal Exam: Soft, Hypoactive Bowel Sounds. absent: Tenderness - Neurological Exam Neurological Exam: Alert, Oriented x3 - Psychiatric Exam Psychiatric exam: Anxious Assessment and Plan (1) Sacral decubitus ulcer, stage III Status: Acute (2) HTN (hypertension) Status: Acute (3) Alzheimer disease Status: Acute (4) Weakness Status: Acute (5) Hypernatremia Status: Acute (6) Hypokalemia Status: Acute (7) Dehydration Status: Acute (8) Failure to thrive Status: Acute (9) Psychosis Status: Acute (10) Abscess of left lung with pneumonia Status: Acute
[2017-11-09] MEDS: metroNIDAZOLE IV 500 mg/100 ml 500 MG/100 ML BAG IVPB SCH ×3 (05:30→22:11)
[2017-11-09] MEDS: Potassium Ch 20mEq in D5W 1,000 ML IV SCH ×2 (08:24→09:32)
[2017-11-09] MEDS: Ferric Sodium Gluconat Complex 62.5 mg/5 ml Vial IVPB SCH (09:41)
[2017-11-09] MEDS: Divalproex 125 mg Sprinkle Capsule PO SCH ×2 (09:49→17:56)
--- NOTE | 2017-11-09 12:20 | PN ---
DATE: 11/09/2017 LOCATION: 660, bed B SUBJECTIVE: This is a 72-year-old male post gastrostomy tube insertion, is scheduled for OR today for most possible debridement, with status post upper endoscopy and reported operative report of diverting sigmoid colostomy yesterday. The entire chart is reviewed including but not limited to the most recent lab and radiology study results, current and the previous medication list, current and the previous medical events. Today's lab results are still pending, but the patient reported to have low hemoglobin and hematocrit, with mild leukocytosis before, with low BUN and creatinine and low calcium as well as low albumin and low total protein. PHYSICAL EXAMINATION: GENERAL: A 72-year-old male. VITAL SIGNS: With low-grade temperature of 99.4, pulse of 108, respiratory rate of 20 to 22, blood pressure of 120/74. HEENT: Showed pale, dry, oral mucous membranes. Nonicteric sclerae. LUNGS: Few scattered crepitations. Decreased air entry at bases. HEART: Positive S1 and S2. ABDOMEN: Soft, bowel sounds are present with mild generalized tenderness. No mass or organomegaly. No rebound tenderness or guarding. Colostomy tube is in place. EXTREMITIES: With lower extremity edematous changes. NEUROLOGIC: No reported new significant neurological deficits, sensory or motor. No reported new focal deficits. IMPRESSION: 1. Malnutrition with hypoalbuminemia and hypoproteinemia. 2. Status post gastrostomy tube insertion, is in place and functioning. 3. Sacral decubiti with ulceration, with colostomy diverting. 4. Known history of hypertension, Alzheimer's disease, depression with dementia. 5. Failure to thrive. 6. Peptic ulcer disease. 7. Reported history of pneumonia. SUGGESTIONS: 1. Continue current management. 2. Follow up on ID consultation request. 3. Continue proton pump inhibitors IV. 4. Carafate liquid through the gastrostomy tube in the meantime. 5. Further recommendations to follow. Candice Morrissey MD
[2017-11-09] MEDS ORDERED: HYDROmorphone 0.5 mg/0.5 ml ISec IVP PRN (12:22)
[2017-11-10] MEDS: Potassium Ch 20mEq in D5W 1,000 ML IV SCH ×3 (02:30→17:20)
[2017-11-10] MEDS: Piperacillin/Tazobact 3.375 GM in Sodium Chloride 100 ML IVPB SCH ×3 (02:30→18:24)
[2017-11-10] MEDS: metroNIDAZOLE IV 500 mg/100 ml 500 MG/100 ML BAG IVPB SCH ×3 (06:56→21:15)
--- NOTE | 2017-11-10 07:22 | OP ---
PROCEDURE DATE: 11/09/2017 PREOPERATIVE DIAGNOSIS: Osteomyelitis, decubitus ulcer of the right hip. POSTOPERATIVE DIAGNOSIS: Osteomyelitis, decubitus ulcer of the right hip. PROCEDURE: Debridement of right hip and sacral decubitus with removal of multiple sacral polyps and drainage of a ischial osteomyelitis. SURGEON: James Patel MD TYPE OF ANESTHESIA: General. ESTIMATED BLOOD LOSS: 30 mL POSTOPERATIVE CONDITION: Stable. DESCRIPTION OF PROCEDURE: The patient was taken back to the operating room in a staged procedure, now will undergo debridement, possible placement of wound VAC of a left ischial decubitus. General anesthesia was administered. He was placed in a right lateral decubitus position and the right ischial area was prepped and draped. The area was again aggressively debrided. Several sacral polyps were identified and removed. Bleeding was controlled using the Bovie. A sacral osteomyelitis was then again drained and cultured. A bone biopsy was sent. The wound was then pulse irrigated with saline and Kantrex solution and due to the wound's location next to the scrotum, a wound VAC could not be placed for an adequate seal. For this reason, a regular saline wet packing was placed. The patient tolerated the procedure well, returned to recovery room in stable condition. James Patel MD
--- NOTE | 2017-11-10 07:35 | OP ---
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 PROCEDURE: Diverting sigmoid loop colostomy. SURGEON: James Patel MD POUNCER: Clemente Etienne MD ANESTHESIA: General endotracheal. ESTIMATED BLOOD LOSS: 30 mL. POSTOPERATIVE CONDITION: Stable. INDICATIONS FOR SURGERY: This is a 72-year-old male status post stroke in a fpc with contracted limbs and decubitus ulcers. Yesterday, he underwent a debridement of the right ischial decubitus, which is stage IV, and had an osteomyelitis. Today, he wanted to go with diverting sigmoid colostomy due to incontinence and osteomyelitis. DESCRIPTION OF PROCEDURE: The patient was taken to the operating room where general anesthesia was administered. The left lower quadrant was prepped and draped. A transverse incision was made in the left lower quadrant, and the abdomen was entered. The sigmoid colon was immediately identified through the wound and a colostomy seema was placed through the mesentery. There was mesenteric bleeding, which was ligated and repaired. A serosal tear within the colon was repaired with silk. The colostomy was then matured by opening the colon through a transverse incision using interrupted 3-0 Monocryl sutures. A stomal appliance was then placed. The patient tolerated the procedure well, returned to the recovery room in stable condition. James Patel MD
--- NOTE | 2017-11-10 09:12 | CP.PCM.PN ---
Subjective - Date & Time of Evaluation Date of Evaluation: 11/10/17 Time of Evaluation: 19:00 - Subjective Subjective: PT SEEN AND EXAMINED TODAY Objective - Vital Signs/Intake and Output Vital Signs (last 24 hours): Temp Pulse Resp BP Pulse Ox 97.8 F 98 H 20 112/71 96 11/09/17 23:55 11/09/17 23:55 11/09/17 23:55 11/09/17 23:55 11/09/17 23:55 Intake and Output: 11/10/17 11/10/17 06:59 18:59 Intake Total 1060 Output Total 1950 Balance -890 - Medications Medications: Current Medications Acetaminophen (Tylenol 650 Mg Supp) 650 mg DC Q6 PRN PRN Reason: Temperature Last Admin: 11/09/17 08:42 Dose: 650 mg Ascorbic Acid (Vitamin C 500 Mg Tab) 500 mg PO DAILY [facility] Last Admin: 11/09/17 09:49 Dose: Not Given Divalproex Sodium (Depakote Sprinkles) 125 mg PO BID [facility] Last Admin: 11/09/17 17:56 Dose: 125 mg Ferric Sodium Gluconate Complex (Ferrlecit) 125 mg IVPB DAILY [facility] Stop: 11/17/17 10:01 Last Admin: 11/09/17 09:41 Dose: 125 mg Folic Acid (Folic Acid) 1 mg PO DAILY [facility] Last Admin: 11/09/17 09:49 Dose: 1 mg Piperacillin Sod/Tazobactam (Sod 3.375 gm/ Sodium Chloride) 100 mls @ 200 mls/ hr IVPB Q8H [facility] PRN Reason: Protocol Last Admin: 11/10/17 02:30 Dose: 200 mls/hr Metronidazole (Flagyl) 500 mg in 100 mls @ 100 mls/hr IVPB Q8 [facility] PRN Reason: Protocol Last Admin: 11/10/17 06:56 Dose: 100 mls/hr Potassium Chloride/Dextrose (Potassium Chl 20 Meq In D5w) 1,000 mls @ 100 mls/ hr IV .Q10H [facility] Last Admin: 11/10/17 04:45 Dose: Not Given Levetiracetam (Keppra) 500 mg PO BID [facility] Last Admin: 11/09/17 17:56 Dose: 500 mg Memantine (Namenda) 10 mg PO BID [facility] Last Admin: 11/09/17 17:56 Dose: 10 mg Pantoprazole Sodium (Protonix Inj) 40 mg IVP DAILY [facility] Last Admin: 11/09/17 09:38 Dose: 40 mg Risperidone (Risperdal Tab) 0.5 mg PO TID [facility] Last Admin: 11/09/17 17:56 Dose: 0.5 mg Vitamin B Complex/Folic Acid (Berroca) 1 tab PO DAILY [facility] Last Admin: 11/09/17 09:49 Dose: Not Given Vitamin E (Vitamin E 400 Units Cap) 400 intlu PO DAILY [facility] Last Admin: 11/09/17 09:50 Dose: Not Given Zinc Sulfate (Zinc Sulfate 220 Mg Cap) 220 mg PO DAILY [facility] Last Admin: 11/09/17 10:00 Dose: Not Given - Labs Labs: 11/07/17 07:12 11/07/17 07:12 PT 19.2 SECONDS (9.7-12.2) H 11/05/17 07:39 INR 1.8 11/05/17 07:39 APTT 31 SECONDS (21-34) 11/05/17 07:39 Assessment and Plan (1) Sacral decubitus ulcer, stage III Status: Acute (2) HTN (hypertension) Status: Acute (3) Alzheimer disease Status: Acute (4) Weakness Status: Acute (5) Hypernatremia Status: Acute (6) Hypokalemia Status: Acute (7) Dehydration Status: Acute (8) Failure to thrive Status: Acute (9) Psychosis Status: Acute (10) Abscess of left lung with pneumonia Status: Acute
[2017-11-10] MEDS: Ferric Sodium Gluconat Complex 62.5 mg/5 ml Vial IVPB SCH (11:02)
[2017-11-10] MEDS: Divalproex 125 mg Sprinkle Capsule PO SCH ×2 (11:05→18:11)
--- NOTE | 2017-11-10 16:32 | PN ---
DATE: LOCATION: 660, bed B. SUBJECTIVE: This is a 72-year-old male seen and examined in rounds without significant clinical changes or reported active bleeding. The patient is status post treatment of sacral ulceration. The entire chart is reviewed including, but not limited to, the most recent lab and radiology study results, current and previous medication list, current and previous medical events. Case discussed with the staff at length, and the patient had reverse colostomy tube. Most recent lab results showed low hemoglobin and hematocrit with low calcium, low albumin, and low total protein. PHYSICAL EXAMINATION: GENERAL: This 72-year-old male, awake, alert, somewhat oriented with colostomy tube in place. No complaint of chest pain, palpitation, or significant shortness of breath. VITAL SIGNS: Afebrile with pulse of 94, respiratory rate 20 to 22, blood pressure 120/74. HEENT: Showed pale, dry oral mucous membranes. Nonicteric sclerae. LUNGS: A few scattered crepitation. Decreased air entry at bases. HEART: Positive S1 and S2. ABDOMEN: Soft with mild generalized tenderness. No mass or organomegaly. No rebound tenderness or guarding. Colostomy is in place as well as the recently inserted G-tube. NEUROLOGIC: No reported new neurological deficits, sensory or motor. IMPRESSION: 1. Malnutrition, hypoalbuminemia. Failure to thrive. 2. Status post gastrostomy tube insertion. 3. Peptic ulcer disease by recent endoscopy. 4. Sacral ulceration with status post colostomy and debridement of the sacral ulceration. 5. Known history of Alzheimer's disease. 6. Hypertension. 7. Depression with dementia. 8. Anemia secondary to above. 9. The patient has history of pneumonia. SUGGESTION: 1. Agree with your plan. 2. Increase the rate of feeding as tolerated. 3. Further recommendation to follow, and the guaiac on the stool daily to follow. Candice Morrissey MD
[2017-11-11] MEDS: Piperacillin/Tazobact 3.375 GM in Sodium Chloride 100 ML IVPB SCH ×2 (03:26→13:59)
[2017-11-11] MEDS: Acetylcysteine 20% Inhal Soln (4ml) INH SCH ×4 (03:33→20:18)
[2017-11-11] MEDS: Albuterol-Ipratrop 3 mg / 0.5 (3 ml) UD INH SCH ×4 (03:33→20:18)
[2017-11-11] MEDS: metroNIDAZOLE IV 500 mg/100 ml 500 MG/100 ML BAG IVPB SCH ×2 (05:39→14:03)
[2017-11-11 08:05] LABS: BASO % 0.1 % (0.0-2.0); EOS % 0.3 % (0.0-4.0); HEMOGLOBIN 9.2 g/dL (12.0-18.0); LYMPH # 1.1 K/uL (1.0-4.3); LYMPH % 8.8 % (20.0-40.0); MEAN CELL VOLUME 84.1 fL (80.0-94.0); MEAN CORPUSCULAR HEMOGLOBIN 28.4 pg (27.0-31.0); MEAN CORPUSCULAR HGB CONC 33.8 g/dL (33.0-37.0); MEAN PLATELET VOLUME 8.2 fL (7.2-11.7); MONO # 0.7 K/uL (0.0-0.8); MONO % 5.6 % (0.0-10.0); NEUT # 10.4 K/uL (1.8-7.0); NEUT % 85.2 % (50.0-75.0); PLATELET COUNT 441 K/uL (130-400); RBC 3.24 Mil/uL (4.40-5.90); RED CELL DISTRIBUTION WIDTH 15.8 % (11.5-14.5); WHITE BLOOD COUNT 12.2 K/uL (4.8-10.8)
[2017-11-11 08:31] LABS: ALB/GLOB RATIO 0.7 (1.0-2.1); ALBUMIN 2.5 g/dL (3.5-5.0); ALT/SGPT 41 U/L (21-72); AST/SGOT 33 U/L (17-59); BLOOD UREA NITROGEN 5 mg/dL (9-20); CALCIUM 7.8 mg/dl (8.6-10.4); GFR AFRICAN-AMERICAN > 60; GFR NON-AFRICAN AMERICAN > 60
[2017-11-11 10:07] LABS: ANISOCYTOSIS SLIGHT; LYMPHOCYTE 7 % (20-40); MONOCYTE 6 % (0-10); NEUTROPHIL 87 % (50-75); PLATELET ESTIMATE NORMAL (NORMAL); TOTAL CELLS COUNTED 100
[2017-11-11 10:08] LABS: LARGE PLATELETS PRESENT; MICROCYTOSIS SLIGHT; OVALOCYTES SLIGHT; POIKILOCYTOSIS SLIGHT
[2017-11-11] MEDS: Ferric Sodium Gluconat Complex 62.5 mg/5 ml Vial IVPB SCH (10:55)
[2017-11-11] MEDS: Divalproex 125 mg Sprinkle Capsule PO SCH ×2 (10:56→18:58)
[2017-11-11 11:53] LABS: INR 1.7; PROTHROMBIN TIME 18.8 SECONDS (9.7-12.2)
--- NOTE | 2017-11-11 12:21 | PN ---
DATE: 11/11/2017 LOCATION: 660, bed B. SUBJECTIVE: This is a 72-year-old male seen and examined in rounds with the staff on the floor early this morning, tolerating gastrostomy tube feeding so far, but with reported pulmonary congestion recently. No reported residual bleeding or resistance. The entire chart is reviewed including but not limited to the most recent lab and radiology study results, current and the previous medication list, current and the previous medical events. Case discussed with the staff at length and today's lab is still pending. PHYSICAL EXAMINATION: GENERAL: A 72-year-old male. VITAL SIGNS: Afebrile, with pulse of 102, respiratory rate 20 to 22, blood pressure 136/68. HEENT: Showed pale, dry, oral mucous membranes. Nonicteric sclerae. LUNGS: Few scattered crepitation. Decreased air entry at bases. HEART: Positive S1 and S2, with increased rate. ABDOMEN: Gastrostomy tube is in place as well as colostomy intact. Bowel sounds are hypoactive, but with mild abdominal distention. No mass or organomegaly. The patient still has his decubitus ulcer covered with clean dressing and drainage. NEUROLOGIC: No reported new neurological deficits, sensory or motor, no reported new focal deficits. Peripheral pulses are present, but decreased bilaterally. IMPRESSION: 1. Failure to thrive. 2. Malnutrition with hypoalbuminemia, hypoproteinemia. 3. Status post gastrostomy tube, status post colostomy insertion. 4. Known history of Alzheimer's disease, peptic ulcer disease. 5. Known history of depression. 6. Hypertension by history. 7. Recent history of pneumonia. 8. Anemia, most likely secondary to above. SUGGESTIONS: 1. Continue current management. 2. Subsequent increase of feeding as tolerated, 3. Further recommendations to follow and repeat CBC as well as complete chemical panel is to be ordered. 4. Further recommendations to follow. Candice Morrissey MD
--- NOTE | 2017-11-11 23:34 | CP.PCM.PN ---
Subjective - Date & Time of Evaluation Date of Evaluation: 11/11/17 Time of Evaluation: 18:40 - Subjective Subjective: Pt seen and examined at bedside Objective - Vital Signs/Intake and Output Vital Signs (last 24 hours): Temp Pulse Resp BP Pulse Ox 97.6 F 108 H 20 128/64 96 11/11/17 15:54 11/11/17 15:54 11/11/17 15:54 11/11/17 15:54 11/11/17 15:54 Intake and Output: 11/11/17 11/12/17 18:59 06:59 Output Total 300 Balance -300 - Medications Medications: Current Medications Acetaminophen (Tylenol 650 Mg Supp) 650 mg [place] Q6 PRN PRN Reason: Temperature Last Admin: 11/09/17 08:42 Dose: 650 mg Acetylcysteine (Acetylcysteine 20%) 4 ml INH RQ6 [facility] Last Admin: 11/11/17 20:18 Dose: Not Given Albuterol/Ipratropium (Duoneb 3 Mg/0.5 Mg (3 Ml) Ud) 3 ml INH RQ6 [facility] Last Admin: 11/11/17 20:18 Dose: Not Given Ascorbic Acid (Vitamin C 500 Mg Tab) 500 mg PO DAILY [facility] Last Admin: 11/11/17 10:54 Dose: 500 mg Divalproex Sodium (Depakote Sprinkles) 125 mg PO BID [facility] Last Admin: 11/11/17 18:58 Dose: 125 mg Ferric Sodium Gluconate Complex (Ferrlecit) 125 mg IVPB DAILY [facility] Stop: 11/17/17 10:01 Last Admin: 11/11/17 10:55 Dose: 125 mg Folic Acid (Folic Acid) 1 mg PO DAILY [facility] Last Admin: 11/11/17 10:55 Dose: 1 mg Levetiracetam (Keppra) 500 mg PO BID [facility] Last Admin: 11/11/17 18:58 Dose: 500 mg Memantine (Namenda) 10 mg PO BID [facility] Last Admin: 11/11/17 18:58 Dose: 10 mg Pantoprazole Sodium (Protonix Inj) 40 mg IVP DAILY [facility] Last Admin: 11/11/17 10:56 Dose: 40 mg Risperidone (Risperdal Tab) 0.5 mg PO TID [facility] Last Admin: 11/11/17 18:58 Dose: 0.5 mg Vitamin B Complex/Folic Acid (Berroca) 1 tab PO DAILY [facility] Last Admin: 11/11/17 10:55 Dose: 1 tab Vitamin E (Vitamin E 400 Units Cap) 400 intlu PO DAILY [facility] Last Admin: 11/11/17 10:55 Dose: 400 intlu Zinc Sulfate (Zinc Sulfate 220 Mg Cap) 220 mg PO DAILY [facility] Last Admin: 11/11/17 10:56 Dose: 220 mg - Labs Labs: 11/11/17 07:43 11/11/17 07:43 PT 18.8 SECONDS (9.7-12.2) H 11/11/17 11:18 INR 1.7 11/11/17 11:18 APTT 37 SECONDS (21-34) H 11/11/17 11:18 Assessment and Plan (1) Sacral decubitus ulcer, stage III Status: Acute (2) HTN (hypertension) Status: Acute (3) Alzheimer disease Status: Acute (4) Weakness Status: Acute (5) Hypernatremia Status: Acute (6) Hypokalemia Status: Acute (7) Dehydration Status: Acute (8) Failure to thrive Status: Acute (9) Psychosis Status: Acute (10) Abscess of left lung with pneumonia Status: Acute
[2017-11-12] MEDS: Albuterol-Ipratrop 3 mg / 0.5 (3 ml) UD INH SCH ×3 (01:18→13:13)
[2017-11-12] MEDS: Acetylcysteine 20% Inhal Soln (4ml) INH SCH ×3 (01:21→13:13)
[2017-11-12] MEDS: Ferric Sodium Gluconat Complex 62.5 mg/5 ml Vial IVPB SCH (09:31)
[2017-11-12] MEDS: Divalproex 125 mg Sprinkle Capsule PO SCH ×2 (09:36→18:30)
--- NOTE | 2017-11-12 12:24 | PN ---
DATE: 11/12/2017 LOCATION: 660, bed B. SUBJECTIVE: This is a 72-year-old male, seen and examined in rounds early this morning, without significant clinical changes, with functioning left colostomy, with reported brownish alice-solid, semi-liquid stool without any reported active bleeding. Gastrostomy tube is in place. The patient tolerating the tube feeding so far well. The entire chart is reviewed including, but not limited to, the most recent lab and radiology study results, current and previous medication list, current and previous medical events. The patient is status post upper endoscopy. Today's lab results are still pending, but yesterday's lab showed leukocytosis with low hemoglobin and hematocrit with increased PT and PTT, with low BUN and creatinine, increased blood glucose level with low calcium, low albumin, and low total protein. PHYSICAL EXAMINATION: GENERAL: A 72-year-old male. VITAL SIGNS: Afebrile, with pulse of 100, respiratory rate 20 to 22, blood pressure 130/74. HEENT: Showed pale, dry, oral mucous membranes. Nonicteric sclerae. LUNGS: Few scattered crepitation. Decreased air entry at bases. HEART: Positive S1 and S2. ABDOMEN: Soft with slight distention. Gastrostomy tube is in place with colostomy tube functioning. Bowel sounds are present. Mild distention noticed with slight generalized tenderness. No evidence of anterior abdominal wall cellulitis. No mass or organomegaly could be appreciated. EXTREMITIES: With mild lower extremity edematous changes. No clubbing or cyanosis. Decubitus ulceration covered with clean dressing. NEUROLOGIC: No new reported neurological deficits, sensory or motor. IMPRESSION: 1. Failure to thrive. 2. Peptic ulcer disease. 3. Malnutrition, hypoalbuminemia, hypoproteinemia. 4. Status post gastrostomy tube insertion. 5. Known history of, but not limited to, hypertension, depression, Alzheimer's disease. 6. Decubitus ulceration with status post colostomy. 7. Anemia most likely secondary to above. 8. Pneumonia by recent history. SUGGESTIONS: 1. Continue current management. 2. Adjust PEG tube feeding. 3. Further recommendations to follow. Candice Morrissey MD [facility] # [id number]
[2017-11-12] MEDS: levETIRAcetam 100 mg/ml (5ml) Oral Syringe PO SCH (18:30)
--- NOTE | 2017-11-12 23:25 | CP.PCM.PN ---
Subjective - Date & Time of Evaluation Date of Evaluation: 11/12/17 Time of Evaluation: 17:00 - Subjective Subjective: Pt sen and evaluated, no chest pain, sob, nausea, vomiting, denies any fever, chills Objective - Vital Signs/Intake and Output Vital Signs (last 24 hours): Temp Pulse Resp BP Pulse Ox 99 F 109 H 18 123/69 100 11/12/17 15:40 11/12/17 15:40 11/12/17 15:40 11/12/17 15:40 11/12/17 15:40 Intake and Output: 11/12/17 11/13/17 18:59 06:59 Intake Total 500 600 Output Total 300 250 Balance 200 350 - Medications Medications: Current Medications Acetaminophen (Tylenol 650 Mg Supp) 650 mg [place] Q6 PRN PRN Reason: Temperature Last Admin: 11/09/17 08:42 Dose: 650 mg Acetylcysteine (Acetylcysteine 20%) 4 ml INH RQ6 [facility] Last Admin: 11/12/17 13:13 Dose: 4 ml Albuterol/Ipratropium (Duoneb 3 Mg/0.5 Mg (3 Ml) Ud) 3 ml INH RQ6 [facility] Last Admin: 11/12/17 13:13 Dose: 3 ml Ascorbic Acid (Vitamin C 500 Mg Tab) 500 mg PO DAILY [facility] Last Admin: 11/12/17 09:30 Dose: 500 mg Divalproex Sodium (Depakote Sprinkles) 125 mg PO BID [facility] Last Admin: 11/12/17 18:30 Dose: 125 mg Ferric Sodium Gluconate Complex (Ferrlecit) 125 mg IVPB DAILY [facility] Stop: 11/17/17 10:01 Last Admin: 11/12/17 09:31 Dose: 125 mg Folic Acid (Folic Acid) 1 mg PO DAILY [facility] Last Admin: 11/12/17 09:31 Dose: 1 mg Levetiracetam (Keppra) 500 mg PO BID [facility] Last Admin: 11/12/17 18:30 Dose: 500 mg Memantine (Namenda) 10 mg PO BID [facility] Last Admin: 11/12/17 18:30 Dose: 10 mg Pantoprazole Sodium (Protonix Ec Tab) 40 mg PO DAILY [facility] Risperidone (Risperdal Tab) 0.5 mg PO TID [facility] Last Admin: 11/12/17 18:30 Dose: 0.5 mg Vitamin B Complex/Folic Acid (Berroca) 1 tab PO DAILY [facility] Last Admin: 11/12/17 09:36 Dose: 1 tab Vitamin E (Vitamin E 400 Units Cap) 400 intlu PO DAILY [facility] Last Admin: 11/12/17 19:08 Dose: 400 intlu Zinc Sulfate (Zinc Sulfate 220 Mg Cap) 220 mg PO DAILY [facility] Last Admin: 11/12/17 13:27 Dose: 220 mg - Labs Labs: 11/11/17 07:43 11/11/17 07:43 PT 18.8 SECONDS (9.7-12.2) H 11/11/17 11:18 INR 1.7 11/11/17 11:18 APTT 37 SECONDS (21-34) H 11/11/17 11:18 Assessment and Plan (1) Sacral decubitus ulcer, stage III Status: Acute (2) HTN (hypertension) Status: Acute (3) Alzheimer disease Status: Acute (4) Weakness Status: Acute (5) Hypernatremia Status: Acute (6) Hypokalemia Status: Acute (7) Dehydration Status: Acute (8) Failure to thrive Status: Acute (9) Psychosis Status: Acute (10) Abscess of left lung with pneumonia Status: Acute
[2017-11-13] MEDS: Acetylcysteine 20% Inhal Soln (4ml) INH SCH ×4 (03:51→20:21)
[2017-11-13] MEDS: Albuterol-Ipratrop 3 mg / 0.5 (3 ml) UD INH SCH ×4 (03:52→20:21)
[2017-11-13] MEDS: Pantoprazole 40 mg EC Tab PO SCH (09:39)
[2017-11-13] MEDS: Ferric Sodium Gluconat Complex 62.5 mg/5 ml Vial IVPB SCH (09:39)
[2017-11-13] MEDS: Divalproex 125 mg Sprinkle Capsule PO SCH ×2 (09:39→17:13)
[2017-11-13] MEDS: levETIRAcetam 100 mg/ml (5ml) Oral Syringe PO SCH ×2 (09:57→17:13)
--- NOTE | 2017-11-13 11:08 | PN ---
DATE: 11/13/2017 LOCATION: 369, bed B. SUBJECTIVE: This is a 72 years old male, seen and examined early in rounds today with the staff in the floor, reported to have fecal material per rectum rather than the colostomy tube as reported by the staff. The entire chart is reviewed including but not limited to the most recent lab and radiology study results, current and the previous medication list, current and the previous medical events. Today's lab results are still pending and the patient still have elevated PT and PTT with low albumin and low total protein. Case discussed with the staff at length and the patient still has gastrostomy tube is in place without reported residual bleeding or resistant. PHYSICAL EXAMINATION: GENERAL: A 72 years old male. VITAL SIGNS: Afebrile with pulse of 92, respiratory rate 20 to 22, blood pressure 128/64. HEENT: Showed pale, dry, oral mucous membranes. Nonicteric sclerae. LUNGS: Few scattered bilateral crepitation. Decreased air entry at bases. HEART: Positive S1 and S2. ABDOMEN: Soft with mild distention. Gastrostomy tube is in place as well as colostomy bag with no fecal material. Decubitus ulceration covered with clean dressing. No mass or organomegaly. EXTREMITIES: With evidence of muscle wasting syndrome with lower extremities mild edematous changes. No clubbing or cyanosis. NEUROLOGIC: No reported new neurological deficits, sensory or motor. Ne reported new focal deficits. IMPRESSION: 1. Hypoalbuminemia, malnutrition with failure to thrive. 2. Status post gastrostomy tube insertion, done surgically. 3. Sacral decubitus with ulceration. 4. Status post colostomy tube, apparently nonfunction. 5. Known history of, but not limited to hypertension, Alzheimer's disease, depression. 6. Recently reported pneumonia, had been on antibiotics. 7. Anemia, secondary to above. SUGGESTIONS: 1. Continue current management. 2. Surgical reevaluation. 3. Increase the rate of feeding as tolerated. Candice Morrissey MD
[2017-11-13] MEDS: Vancomycin 1 gm/NS 200 ml 1 GM/200 ML BAG IVPB SCH (12:51)
[2017-11-13] MEDS: Piperacill/Tazo 3.375gm in Dex 3.375 GM/50 ML BAG IVPB SCH ×2 (14:00→22:23)
[2017-11-13] MEDS ORDERED: Acetaminophen 160 mg/5 ml UD PEG PRN (16:32)
[2017-11-13] MEDS ORDERED: Acetaminophen 650mg/20.3ml solution UD PEG PRN (17:15)
[2017-11-13 18:22] VITALS: RESP 20
[2017-11-13] MEDS ORDERED: Sodium Chloride 0.9% 1,000 ML IV ONE (21:33)
--- NOTE | 2017-11-13 23:17 | CP.PCM.PN ---
Subjective - Date & Time of Evaluation Date of Evaluation: 11/13/17 Time of Evaluation: 18:40 - Subjective Subjective: Pt is feeling better, seen and examined by me today, improving Objective - Vital Signs/Intake and Output Vital Signs (last 24 hours): Temp Pulse Resp BP Pulse Ox 100 F H 110 H 20 137/73 98 11/13/17 21:40 11/13/17 16:45 11/13/17 16:45 11/13/17 16:45 11/13/17 16:45 Intake and Output: 11/13/17 11/14/17 18:59 06:59 Intake Total 1550 800 Output Total 453 401 Balance 1097 399 - Medications Medications: Current Medications Acetaminophen (Tylenol 325mg Tab) 650 mg PO Q4 PRN PRN Reason: Fever >100.4 F Last Admin: 11/13/17 21:40 Dose: 650 mg Acetylcysteine (Acetylcysteine 20%) 4 ml INH RQ6 [facility] Last Admin: 11/13/17 20:21 Dose: 4 ml Albuterol/Ipratropium (Duoneb 3 Mg/0.5 Mg (3 Ml) Ud) 3 ml INH RQ6 [facility] Last Admin: 11/13/17 20:21 Dose: 3 ml Ascorbic Acid (Vitamin C 500 Mg Tab) 500 mg PO DAILY [facility] Last Admin: 11/13/17 09:38 Dose: 500 mg Divalproex Sodium (Depakote Sprinkles) 125 mg PO BID [facility] Last Admin: 11/13/17 17:13 Dose: 125 mg Ferric Sodium Gluconate Complex (Ferrlecit) 125 mg IVPB DAILY [facility] Stop: 11/17/17 10:01 Last Admin: 11/13/17 09:39 Dose: 125 mg Folic Acid (Folic Acid) 1 mg PO DAILY [facility] Last Admin: 11/13/17 09:39 Dose: 1 mg Piperacillin Sod/Tazobactam Sod (Zosyn 3.375 Gm Iv Premix) 3.375 gm in 50 mls @ 100 mls/hr IVPB Q8H [facility] PRN Reason: Protocol Last Admin: 11/13/17 22:23 Dose: 100 mls/hr Vancomycin/Sodium Chloride (Vancomycin 1 Gm/Ns 200 Ml) 1 gm in 200 mls @ 133 mls/hr IVPB DAILY [facility] PRN Reason: Protocol Stop: 11/18/17 11:31 Last Admin: 11/13/17 12:51 Dose: 133 mls/hr Sodium Chloride (Sodium Chloride 0.9%) 1,000 mls @ 100 mls/hr IV .Q10H [facility] Stop: 11/14/17 07:32 Last Admin: 11/13/17 22:23 Dose: 100 mls/hr Levetiracetam (Keppra) 500 mg PO BID [facility] Last Admin: 11/13/17 17:13 Dose: 500 mg Memantine (Namenda) 10 mg PO BID [facility] Last Admin: 11/13/17 17:13 Dose: 10 mg Pantoprazole Sodium (Protonix Ec Tab) 40 mg PO DAILY [facility] Last Admin: 11/13/17 09:39 Dose: 40 mg Risperidone (Risperdal Tab) 0.5 mg PO TID [facility] Last Admin: 11/13/17 17:14 Dose: 0.5 mg Vitamin B Complex/Folic Acid (Berroca) 1 tab PO DAILY [facility] Last Admin: 11/13/17 09:39 Dose: 1 tab Vitamin E (Vitamin E 400 Units Cap) 400 intlu PO DAILY [facility] Last Admin: 11/13/17 09:39 Dose: 400 intlu Zinc Sulfate (Zinc Sulfate 220 Mg Cap) 220 mg PO DAILY [facility] Last Admin: 11/13/17 09:39 Dose: 220 mg - Labs Labs: 11/11/17 07:43 11/11/17 07:43 PT 18.8 SECONDS (9.7-12.2) H 11/11/17 11:18 INR 1.7 11/11/17 11:18 APTT 37 SECONDS (21-34) H 11/11/17 11:18 Assessment and Plan (1) Sacral decubitus ulcer, stage III Status: Acute (2) HTN (hypertension) Status: Acute (3) Alzheimer disease Status: Acute (4) Weakness Status: Acute (5) Hypernatremia Status: Acute (6) Hypokalemia Status: Acute (7) Dehydration Status: Acute (8) Failure to thrive Status: Acute (9) Psychosis Status: Acute (10) Abscess of left lung with pneumonia Status: Acute
[2017-11-14] MEDS: Acetylcysteine 20% Inhal Soln (4ml) INH SCH ×2 (02:17→08:00)
[2017-11-14] MEDS: Albuterol-Ipratrop 3 mg / 0.5 (3 ml) UD INH SCH ×2 (02:17→08:00)
[2017-11-14] MEDS: Piperacill/Tazo 3.375gm in Dex 3.375 GM/50 ML BAG IVPB SCH (05:00)
[2017-11-14 07:46] VITALS: BP 149/69; PULSE 108; TEMP 98.8; O2SAT 95
[2017-11-14] MEDS: levETIRAcetam 100 mg/ml (5ml) Oral Syringe PO SCH (10:43)
[2017-11-14] MEDS: Pantoprazole 40 mg EC Tab PO SCH (10:43)
[2017-11-14] MEDS: Divalproex 125 mg Sprinkle Capsule PO SCH (10:44)
[2017-11-14] MEDS: Ferric Sodium Gluconat Complex 62.5 mg/5 ml Vial IVPB SCH (10:45)
--- NOTE | 2017-11-14 10:59 | PN ---
DATE: 11/14/2017 LOCATION: 369, bed B. SUBJECTIVE: This is a 72 years old male, seen and examined early in rounds today without any significant clinical changes but reported to have elevated temperature. The patient is still having clean dressing on his sacral ulceration area. Colostomy tube is in place with no reported fecal material. The entire chart is reviewed including but not limited to the most recent lab and radiology study results, current and the previous medication list, current and the previous medical events. Case discussed with the staff at length. PHYSICAL EXAMINATION: GENERAL: A 72 years old male. VITAL SIGNS: Afebrile at the time of the physical examination with heart rate of 96, respiratory rate 20 to 22, blood pressure 148/80. HEENT: Showed pale, dry, oral mucous membranes. Nonicteric sclerae. LUNGS: Scattered crepitation. Decreased air entry at bases. HEART: Positive S1 and S2 with increased rate. ABDOMEN: Soft with mild distention. Bowel sounds are hypoactive. Colostomy tube is in place, covered with clean dressing. Gastrostomy tube is in place. No residual bleeding or resistant. EXTREMITIES: Lower extremities mild edematous changes. No clubbing or cyanosis. NEUROLOGIC: No reported new neurological deficits, sensory or motor. Ne new reported neurological deficits. IMPRESSION: 1. Failure to thrive, malnutrition, hypoalbuminemia, hypoproteinemia. 2. Status post gastrostomy tube insertion, done surgically. 3. Peptic ulcer disease. 4. Decubitus ulceration with reverse colostomy. 5. Anemia most likely secondary to above. 6. Known history of Alzheimer's disease, hypertension. 7. Recently reported pneumonia, had been on antibiotics. SUGGESTIONS: 1. Agree with your plan. 2. Sectional abdominal and pelvic CAT scan. 3. Surgical reevaluation apparently the colostomy tube is malfunctioning. 4. Blood culture x2. 5. Further recommendation to follow. Candice Morrissey MD
[2017-11-14] MEDS: Vancomycin 1 gm/NS 200 ml 1 GM/200 ML BAG IVPB SCH (11:36)
--- NOTE | 2017-11-14 17:21 | CP.PCM.PN ---
Subjective - Date & Time of Evaluation Date of Evaluation: 11/14/17 Time of Evaluation: 11:00 - Subjective Subjective: awake, confused, weak, afebrile today, no acute distress. Objective - Vital Signs/Intake and Output Vital Signs (last 24 hours): Temp Pulse Resp BP Pulse Ox 98.8 F 108 H 20 149/69 95 11/14/17 07:44 11/14/17 07:44 11/14/17 07:44 11/14/17 07:44 11/14/17 07:44 Intake and Output: 11/14/17 11/14/17 06:59 18:59 Intake Total 2200 Output Total 766 Balance 1434 - Labs Labs: 11/11/17 07:43 11/11/17 07:43 PT 18.8 SECONDS (9.7-12.2) H 11/11/17 11:18 INR 1.7 11/11/17 11:18 APTT 37 SECONDS (21-34) H 11/11/17 11:18 Assessment and Plan - Assessment and Plan (Free Text) Assessment: Patient is seen and examined. Awake, responsive, on PEG tube feedings, tolerating well. As per DR Duvall he will be getting 4 weeks of iv vanco and zosyn for the sacral wound infection via PICC line, and is arranged to transfer to [facility] today. The family is ok with it today. Discussed with DR Yancey, plan to discharge today.
--- NOTE | 2017-11-14 23:50 | CP.PCM.DIS ---
Provider - Provider Date of Admission: 11/01/17 17:53 Attending physician: Shabbir Yancey MD Diagnosis - Discharge Diagnosis (1) Sacral decubitus ulcer, stage III Status: Acute (2) HTN (hypertension) Status: Acute (3) Alzheimer disease Status: Acute (4) Weakness Status: Acute (5) Hypernatremia Status: Acute (6) Hypokalemia Status: Acute (7) Dehydration Status: Acute (8) Failure to thrive Status: Acute (9) Psychosis Status: Acute (10) Abscess of left lung with pneumonia Status: Acute Hospital Course - Lab Results Lab Results: Micro Results 11/09/17 12:30 Sacral Gram Stain - Final 11/09/17 12:30 Sacral Wound Culture - Final Escherichia Coli 11/01/17 15:00 Blood Blood Culture - Final NO GROWTH AFTER 5 DAYS 11/01/17 15:00 Blood Gram Stain - Final TEST NOT PERFORMED 11/01/17 14:30 Blood Blood Culture - Final NO GROWTH AFTER 5 DAYS 11/01/17 14:30 Blood Gram Stain - Final TEST NOT PERFORMED 11/03/17 08:00 Sacral Wound Culture - Final Proteus Mirabilis 11/01/17 Unknown Urine Urine Culture - Final No Growth (<1,000 CFU/ML) Most Recent Lab Values WBC 12.2 K/uL (4.8-10.8) H 11/11/17 07:43 RBC 3.24 Mil/uL (4.40-5.90) L 11/11/17 07:43 Hgb 9.2 g/dL (12.0-18.0) L 11/11/17 07:43 Hct 27.3 % (35.0-51.0) L 11/11/17 07:43 MCV 84.1 fL (80.0-94.0) 11/11/17 07:43 MCH 28.4 pg (27.0-31.0) 11/11/17 07:43 MCHC 33.8 g/dL (33.0-37.0) 11/11/17 07:43 RDW 15.8 % (11.5-14.5) H 11/11/17 07:43 Plt Count 441 K/uL (130-400) H 11/11/17 07:43 MPV 8.2 fL (7.2-11.7) 11/11/17 07:43 Neut % (Auto) 85.2 % (50.0-75.0) H 11/11/17 07:43 Lymph % (Auto) 8.8 % (20.0-40.0) L 11/11/17 07:43 Bee % (Auto) 5.6 % (0.0-10.0) 11/11/17 07:43 Eos % (Auto) 0.3 % (0.0-4.0) 11/11/17 07:43 Baso % (Auto) 0.1 % (0.0-2.0) 11/11/17 07:43 Neut # (Auto) 10.4 K/uL (1.8-7.0) H 11/11/17 07:43 Lymph # (Auto) 1.1 K/uL (1.0-4.3) 11/11/17 07:43 Bee # (Auto) 0.7 K/uL (0.0-0.8) 11/11/17 07:43 Eos # (Auto) 0.0 K/uL (0.0-0.7) 11/11/17 07:43 Baso # (Auto) 0.0 K/uL (0.0-0.2) 11/11/17 07:43 Neutrophils % (Manual) 87 % (50-75) H 11/11/17 07:43 Lymphocytes % (Manual) 7 % (20-40) L 11/11/17 07:43 Monocytes % (Manual) 6 % (0-10) 11/11/17 07:43 Platelet Estimate Normal (NORMAL) 11/11/17 07:43 Large Platelets Present 11/11/17 07:43 Hypochromasia (manual) Slight 11/01/17 15:42 Poikilocytosis (manual Slight 11/11/17 07:43 Anisocytosis (manual) Slight 11/11/17 07:43 Microcytosis (manual) Slight 11/11/17 07:43 Macrocytosis (manual) Slight 11/11/17 07:43 Target Cells Slight 11/01/17 15:42 Ovalocytes Slight 11/11/17 07:43 PT 18.8 SECONDS (9.7-12.2) H 11/11/17 11:18 INR 1.7 11/11/17 11:18 APTT 37 SECONDS (21-34) H 11/11/17 11:18 Puncture Site Rra 11/04/17 20:48 pCO2 33 mm/Hg (35-45) L 11/04/17 20:48 pO2 91 mm/Hg (80-100) 11/04/17 20:48 HCO3 27.7 mmol/L (21-28) 11/04/17 20:48 ABG pH 7.51 (7.35-7.45) H 11/04/17 20:48 ABG Total CO2 27.3 mmol/L (22-28) 11/04/17 20:48 ABG O2 Saturation 99.0 % (95-98) H 11/04/17 20:48 ABG Base Excess 3.6 mmol/L (-2.0-3.0) H 11/04/17 20:48 Hemanth Test Pos 11/04/17 20:48 ABG Potassium 3.3 mmol/L (3.6-5.2) L 11/04/17 20:48 VBG pH 7.56 (7.32-7.43) H 11/01/17 15:18 VBG pCO2 35 mmHg (40-60) L 11/01/17 15:18 VBG HCO3 31.6 mmol/L 11/01/17 15:18 VBG Total CO2 32.4 mmol/L (22-28) H 11/01/17 15:18 VBG O2 Sat (Calc) 92.6 % (40-65) H 11/01/17 15:18 VBG Base Excess 8.8 mmol/L (0.0-2.0) H 11/01/17 15:18 VBG Potassium 7.0 mmol/L (3.6-5.2) H* 11/01/17 15:18 Sodium 145.0 mmol/l (132-148) 11/04/17 20:48 Chloride 112.0 mmol/L (98-107) H 11/04/17 20:48 Glucose 149 mg/dl (75-110) H 11/04/17 20:48 Lactate 1.4 mmol/L (0.7-2.1) 11/04/17 20:48 Crit Value Called To Zee javed rn 11/01/17 15:18 Crit Value Called By Iris 11/01/17 15:18 Crit Value Read Back Y 11/01/17 15:18 Blood Gas Notified Time 1530 11/01/17 15:18 Sodium 145 mmol/L (132-148) 11/11/17 07:43 Potassium 3.6 mmol/L (3.6-5.2) 11/11/17 07:43 Chloride 108 mmol/L (98-107) H 11/11/17 07:43 Carbon Dioxide 29 mmol/L (22-30) 11/11/17 07:43 Anion Gap 11 (10-20) 11/11/17 07:43 BUN 5 mg/dL (9-20) L 11/11/17 07:43 Creatinine 0.5 mg/dL (0.8-1.5) L 11/11/17 07:43 Est GFR ( Amer) > 60 11/11/17 07:43 Est GFR (Non-Af Amer) > 60 11/11/17 07:43 Random Glucose 143 mg/dL (75-110) H 11/11/17 07:43 Calcium 7.8 mg/dl (8.6-10.4) L 11/11/17 07:43 Total Bilirubin 0.6 mg/dL (0.2-1.3) 11/11/17 07:43 AST 33 U/L (17-59) 11/11/17 07:43 ALT 41 U/L (21-72) 11/11/17 07:43 Alkaline Phosphatase 74 U/L (38-126) 11/11/17 07:43 CK-MB (Mass) 0.67 ng/mL (0.0-3.38) 11/01/17 15:42 Troponin I 0.0130 ng/mL (0.00-0.120) 11/01/17 16:55 Total Protein 6.1 g/dL (6.3-8.3) L 11/11/17 07:43 Albumin 2.5 g/dL (3.5-5.0) L 11/11/17 07:43 Globulin 3.6 gm/dL (2.2-3.9) 11/11/17 07:43 Albumin/Globulin Ratio 0.7 (1.0-2.1) L 11/11/17 07:43 Lipase 38 U/L (23-300) 11/01/17 15:42 Arterial Blood Potassium 3.3 mmol/L (3.6-5.2) L 11/04/17 20:48 Venous Blood Potassium 7.0 mmol/L (3.6-5.2) H* 11/01/17 15:18 Urine Color Yellow (YELLOW) 11/01/17 16:22 Urine Clarity Hazy (Clear) 11/01/17 16:22 Urine pH 5.0 (5.0-8.0) 11/01/17 16:22 Ur Specific [facility] 1.015 (1.003-1.030) 11/01/17 16:22 Urine Protein Negative mg/dL (NEGATIVE) 11/01/17 16:22 Urine Glucose (UA) Normal mg/dL (Normal) 11/01/17 16:22 Urine Ketones Negative mg/dL (NEGATIVE) 11/01/17 16:22 Urine Blood 3+ (NEGATIVE) H 11/01/17 16:22 Urine Nitrate Negative (NEGATIVE) 11/01/17 16:22 Urine Bilirubin Negative (NEGATIVE) 11/01/17 16:22 Urine Urobilinogen 4.0 mg/dL (0.2-1.0) 11/01/17 16:22 Ur Leukocyte Esterase 2+ Susie/uL (Negative) H 11/01/17 16:22 Urine WBC (Auto) 20 /hpf (0-5) H 11/01/17 16:22 Urine RBC (Auto) 145 /hpf (0-3) H 11/01/17 16:22 Stool Occult Blood Negative (NEGATIVE) 11/06/17 11:49 Blood Type O POSITIVE 11/03/17 12:30 Blood Type Confirm O POSITIVE 11/03/17 12:30 Antibody Screen Negative 11/03/17 12:30 - Hospital Course Hospital Course: Patient is seen and examined. Awake, responsive, on PEG tube feedings, tolerating well. As per DR Duvall he will be getting 4 weeks of iv vanco and zosyn for the sacral wound infection via PICC line, and is arranged to transfer to [facility] today. The family is ok with it today. [t is for discharge hpme tpday Discharge Exam - Head Exam Head Exam: ATRAUMATIC, NORMAL INSPECTION, NORMOCEPHALIC Discharge Plan - Discharge Medications Prescriptions: Vancomycin 1 GM [Vancomycin 1GM in Normal Saline Addvantage] 1 gm IVPB DAILY 28 Days bag - Follow Up Plan Condition: FAIR Disposition: OTHER INSTITUTION Instructions: Pressure Sores (DC), Pneumonia, Adult (DC), Lung Abscess (DC) Referrals: Shabbir Yancey MD [Staff Provider] -
== END 2017-11-14 12:13 | disposition designated cancer center or children's hospital (05) | DRG 592 ==
LOC: C.ER 13:38 → C.9E 17:53 → C.6T 18:23 → C.3T 11-12 14:55
PROVIDERS: ADMIT Internal Medicine; ATTEND Internal Medicine
DX: L89.314 Pressure ulcer of right buttock, stage 4 (principal); A41.9 Sepsis, unspecified organism; J18.9 Pneumonia, unspecified organism; R64 Cachexia; N39.0 Urinary tract infection, site not specified; M86.9 Osteomyelitis, unspecified; E87.0 Hyperosmolality and hypernatremia; E46 Unspecified protein-calorie malnutrition; D68.9 Coagulation defect, unspecified; L89.153 Pressure ulcer of sacral region, stage 3; Z87.11 Personal history of peptic ulcer disease; Z87.01 Personal history of pneumonia (recurrent); Z86.73 Personal history of transient ischemic attack (TIA), and cerebral infarction without residual deficits; R62.7 Adult failure to thrive; R32 Unspecified urinary incontinence; L89.229 Pressure ulcer of left hip, unspecified stage; L89.219 Pressure ulcer of right hip, unspecified stage; K27.9 Peptic ulcer, site unspecified, unspecified as acute or chronic, without hemorrhage or perforation; I10 Essential (primary) hypertension; G40.909 Epilepsy, unspecified, not intractable, without status epilepticus; G30.9 Alzheimer's disease, unspecified; F41.1 Generalized anxiety disorder; F32.9 Major depressive disorder, single episode, unspecified; F01.50 Vascular dementia, unspecified severity, without behavioral disturbance, psychotic disturbance, mood disturbance, and anxiety; E87.6 Hypokalemia; E86.0 Dehydration; E83.51 Hypocalcemia; E77.8 Other disorders of glycoprotein metabolism; D64.9 Anemia, unspecified; Z87.891 Personal history of nicotine dependence; F02.80 Dementia in other diseases classified elsewhere, unspecified severity, without behavioral disturbance, psychotic disturbance, mood disturbance, and anxiety